=== PATIENT | female | born 1990 | race Caucasian/White ===

== ENCOUNTER 2018-07-27 10:35 | Emergency (ER) | END 2018-07-27 13:38 | disposition home or self-care (01) ==

== ENCOUNTER 2018-08-28 15:27 | Inpatient (IN) | END 2018-08-31 22:10 | disposition home or self-care (01) | DRG 832 ==

== ENCOUNTER 2018-09-20 14:21 | Inpatient (IN) | END 2018-09-22 21:50 | disposition home or self-care (01) | DRG 832 ==

== ENCOUNTER 2018-10-01 17:28 | Inpatient (IN) | payer MEDICAID, OTHER ==
[~2018-10-01] VITALS: Ht 152.4 cm; Wt 66.4 kg
[~2018-10-01 17:28] MED LIST: ASCO250T96 PO; CHOL400C PO; PREN-99 PO
[2018-10-01 17:42] VITALS: Ht 152.4 cm; Wt 66.4 kg
[2018-10-01 17:43] VITALS: BP 115/77; PULSE 110; RESP 20
[2018-10-01] MEDS ORDERED: NIFEdipine 10 MG CAP PO ONE (20:00)
[2018-10-01] MEDS: LACTATED RINGER'S 1,000 ML IV SCH ×2 (20:17→23:12)
[2018-10-01] MEDS: DOCUSATE SODIUM 100 MG CAP PO SCH (21:00)
--- NOTE | 2018-10-01 23:17 | HP ---
Date/Time of Note Date/Time of Note DATE: 10/01/18 TIME: 23:04 OB - History Hx of Present Free Text/Dictation 27 y.o. A2 with an IUP at 25w 6d came in with lower abdominal pain for one hour prior to admission. Pt has a h/o a short cervix over the last 5-6 weeks and has been followed by perinatology as well for the same thing. Her cervix was 1.8 cm on 09/22. She had beta-methasone at that hospital visit as well. At that last visit she was given magnesium for contractions but did not tolerate it so it was stopped. Estimated Due Date: Jan 08, 2019 : 5 Para: 2 Spontaneous : 2 Care: Good Care Ultrasounds: Normal mid trimester US Obstetrical Complications: Other (shortened cervix.) Medical Complications: None Other Concerns: POBHx: x 2 2011 and 2013 with an early miscarriage after each one.Pt states she had a problem with a short cervix with each . PSHx: Tonsillectomy age 13. LSC ovarian cystectomy 2014. NKDA. Past Family/Social History * Past Medical, Surgical, Family and Obstetric Histories reviewed with the patient. Blood Type: Unknown Rubella: unknown RPR/VDRL: Unknown GBS Status: Unknown HBsAG: Unknown OB Admission Exam Vital Signs Vital Signs Vital Signs Date Temp Pulse Resp B/P (MAP) Pulse Ox O2 O2 Flow FiO2 Time Delivery Rate 10/01/18 97.5 110 20 115/77 Room Air 17:43 (90) Physical Exam HEENT: WNL Heart: Rhythm Normal Lungs: Clear Abdomen: WNL Extremities: Normal Membranes: Intact Heart Rate: 140's Accelerations: Accelerations Present Decelerations: No Decelerations Varibility: Moderate Contractions on Admission: 6-10 Minutes Apart Intensity: Mild Last 72 hours Lab Results CBC & BMP 10/01/18 20:15 OB Assessment/Plan Reason for admission: labor Other Assessment: With a short cervix of 1.6 with funneling. Other plan: IV hydration. P.O. Procardia. Bedrest. Now that pt is in viability range she says she has not talked to neonatology, so will order a consult for her. Pt has 2 young children at home and no obvious caregivers to help out as the ones that do help her also work. Urine cx. REICHE,DANIELLA J MD Oct 01, 2018 23:17
[2018-10-02] MEDS: NIFEdipine 10 MG CAP PO SCH ×2 (06:50→13:56)
[2018-10-02] MEDS: LACTATED RINGER'S 1,000 ML IV SCH ×3 (07:01→22:47)
[2018-10-02] MEDS: PRENATAL VITAMIN PO SCH (09:15)
[2018-10-02] MEDS: DOCUSATE SODIUM 100 MG CAP PO SCH ×2 (09:15→20:52)
[2018-10-02] MEDS: FERROUS SULFATE (EC) 325 MG TAB PO SCH ×2 (09:15→20:53)
[2018-10-02] MEDS: NIFEdipine (XL) 30 MG TAB PO SCH (16:37)
[2018-10-03] MEDS: LACTATED RINGER'S 1,000 ML IV SCH ×2 (06:31→16:00)
[2018-10-03] MEDS: PRENATAL VITAMIN PO SCH (10:02)
[2018-10-03] MEDS: DOCUSATE SODIUM 100 MG CAP PO SCH ×2 (10:02→21:10)
[2018-10-03] MEDS: NIFEdipine (XL) 30 MG TAB PO SCH (10:02)
[2018-10-03] MEDS: FERROUS SULFATE (EC) 325 MG TAB PO SCH ×2 (10:02→21:10)
[2018-10-03] MEDS ORDERED: INDOMETHACIN 50 MG PO ONE (11:30)
--- NOTE | 2018-10-03 14:03 | PN ---
Date/Time of Note Date/Time of Note DATE: 10/03/18 TIME: 13:39 OB Subjective Subjective Subjective Date of admission: 10/01/18 Patient seen and examined. She states good movement. She denies nausea, vomiting, shortness of breath, chest pain, abdominal pain, headache, visual changes, vaginal bleeding or LOF. OB Objective Objective Objective Vital Signs Date Temp Pulse Resp B/P (MAP) Pulse Ox O2 O2 Flow FiO2 Time Delivery Rate 10/01/18 97.5 110 20 115/77 Room Air 17:43 (90) General: Patient appears well, alert and oriented, NAD, appropriate mood and affect ABD: gravid, soft, non-tender. Back: No CVA tenderness (B/L) LE: Mild edema. No clubbing, cyanosis, edema, thigh or calf tenderness bilaterally FHT: 135 bpm, moderate variability with acceleration, no deceleration-category I Contractions: Uterine irritability OB Assessment/Plan Other plan: 34-year-old 022 with single intrauterine at 26 weeks and 1 day with a MICHELE of 01/09/2018 admitted for short cervix and cervical funneling. She was admitted previously for a short cervix, received betamethasone x2 and magnesium sulfate only for 6 over as not able to tolerate magnesium sulfate. FHR: Reassuring. No sign of metabolic acidosis- Category I. She has uterine irritability. She is currently on Procardia. Patient discussed with Dr. Gil who recommend Indocin 50 mg p.o. x1 and then 25 mg every 8 hours for 48 hours. Observe patient closely. FILEMON LANDEROS Oct 03, 2018 14:03
[2018-10-03] MEDS: INDOMETHACIN 25 MG PO SCH (18:03)
[2018-10-04] MEDS: LACTATED RINGER'S 1,000 ML IV SCH ×3 (00:12→16:08)
[2018-10-04] MEDS: INDOMETHACIN 25 MG PO SCH ×5 (00:12→23:48)
[2018-10-04] MEDS: DOCUSATE SODIUM 100 MG CAP PO SCH ×2 (09:04→21:29)
[2018-10-04] MEDS: FERROUS SULFATE (EC) 325 MG TAB PO SCH ×2 (09:05→21:29)
[2018-10-04] MEDS: PRENATAL VITAMIN PO SCH (09:05)
[2018-10-04] MEDS: NIFEdipine (XL) 30 MG TAB PO SCH (09:07)
--- NOTE | 2018-10-04 10:52 | PN ---
Date/Time of Note Date/Time of Note DATE: 10/04/18 TIME: 10:50 OB Subjective Subjective Subjective Denies any complaint. Denies any vaginal bleeding, leaking of fluid decreased movements contractions. Comfortable in bed. OB Objective Objective Objective Appearance: Alert and oriented x4 does not appear to be in any acute distress Abdomen: Soft, gravid, fundal height consistent with gestational age NST: Category 1 and no contraction seen on the monitor Latest cervical length 1.6 OB Assessment/Plan Other Assessment: IUP at 26 weeks and 2 days Admitted for short cervix History of labor Status post steroid about 2 weeks ago when she was admitted Was on magnesium, for tocolysis however could not tolerate due to side effects Currently stable on Nifedipine oral 30 mg extended release Asymptomatic Status post perinatologist consultation. Recommended to be on Indocin for 48 hours as well Continue nifedipine and Indocin per perinatologist stop Indocin after 48 hours per perinatologist Expectant management CRISTELA BRUNSON MD Oct 04, 2018 10:52
[2018-10-05] MEDS: LACTATED RINGER'S 1,000 ML IV SCH ×3 (00:47→16:18)
[2018-10-05] MEDS: INDOMETHACIN 25 MG PO SCH ×3 (05:18→18:35)
[2018-10-05] MEDS: NIFEdipine (XL) 30 MG TAB PO SCH (08:40)
[2018-10-05] MEDS: FERROUS SULFATE (EC) 325 MG TAB PO SCH ×2 (08:40→21:12)
[2018-10-05] MEDS: PRENATAL VITAMIN PO SCH (08:40)
[2018-10-05] MEDS: DOCUSATE SODIUM 100 MG CAP PO SCH ×2 (08:40→21:12)
--- NOTE | 2018-10-06 05:52 | PN ---
Date/Time of Note Date/Time of Note DATE: 10/06/18 TIME: 05:40 OB Subjective Subjective Subjective Date of admission: 10/01/18 Hospital day # 5 Date of visit: 10/05/2018 (late entry note) Patient seen and examined. She states good movement. She denies nausea, vomiting, shortness of breath, chest pain, abdominal pain, headache, visual changes, vaginal bleeding or LOF. OB Objective Objective Objective General: Patient appears well, alert and oriented, NAD, appropriate mood and affect ABD: gravid, soft, non-tender. Back: No CVA tenderness (B/L) LE: Mild edema. No clubbing, cyanosis, edema, thigh or calf tenderness bilaterally FHT: 140 bpm, moderate variability with acceleration, no deceleration-category I Contractions: None OB Assessment/Plan Other plan: 34-year-old with single intrauterine at 26 weeks and 3 days admitted for short cervix and cervical funneling. - AF, VSS - FHR: Reassuring. No sign of metabolic acidosis- Category I - Continue vitamin and ferrous sulfate daily - Currently she has no uterine contractions - She has received betamethasone for lung maturity in last admission - She received magnesium sulfate for 6 hrs in prior admission, discontinued due to side effect - She is currently on Procardia 30 mg XL daily, is status post receiving Indocin for 48 hours - She was on [place] IM injection weekly prior to admission, cont meds - NICU and perinatology consult appreciated please see the note for detail FILEMON LANDEROS Oct 06, 2018 05:52
--- NOTE | 2018-10-06 05:53 | PN ---
Date/Time of Note Date/Time of Note DATE: 10/06/18 TIME: 05:52 OB Subjective Subjective Subjective Date of admission: 10/01/18 Hospital day # 6 Date of visit: 10/06/2018 Patient seen and examined. She states good movement. She denies nausea, vomiting, shortness of breath, chest pain, abdominal pain, headache, visual changes, vaginal bleeding or LOF. OB Objective Objective Objective General: Patient appears well, alert and oriented, NAD, appropriate mood and affect ABD: gravid, soft, non-tender. Back: No CVA tenderness (B/L) LE: Mild edema. No clubbing, cyanosis, edema, thigh or calf tenderness bilaterally FHT:130 bpm, moderate variability with acceleration, no deceleration-category I Contractions: None OB Assessment/Plan Other plan: 34-year-old with single intrauterine at 26 weeks and 4 days with short cervix and cervical funneling. - AF, VSS - FHR: Reassuring. No sign of metabolic acidosis- Category I - Continue vitamin and ferrous sulfate daily - Currently she has no uterine contractions - She has received betamethasone for lung maturity in last admission - She received magnesium sulfate for 6 hrs in prior admission, discontinued due to side effect - She is currently on Procardia 30 mg XL daily, S/p Indocin for 48 hours - She was on [place] IM injection weekly prior to admission, cont meds - NICU and perinatology consult appreciated please see the note for detail FILEMON LANDEROS Oct 06, 2018 05:53
[2018-10-06] MEDS: FERROUS SULFATE (EC) 325 MG TAB PO SCH ×2 (10:25→21:11)
[2018-10-06] MEDS: NIFEdipine (XL) 30 MG TAB PO SCH (10:25)
[2018-10-06] MEDS: PRENATAL VITAMIN PO SCH (10:25)
[2018-10-07] MEDS: NIFEdipine (XL) 30 MG TAB PO SCH (08:18)
[2018-10-07] MEDS: FERROUS SULFATE (EC) 325 MG TAB PO SCH ×2 (08:18→21:01)
[2018-10-07] MEDS: PRENATAL VITAMIN PO SCH (08:18)
--- NOTE | 2018-10-07 18:24 | QN ---
Documentation Comment 34-year-old with single intrauterine at 26 weeks and 5 days with short cervix and cervical funneling. Has no uterine contraction or any other complaint - AF, VSS - FHR: Reassuring. No sign of metabolic acidosis- Category I - Continue vitamin and ferrous sulfate daily - Currently she has no uterine contractions - She has received betamethasone for lung maturity in last admission - She received magnesium sulfate for 6 hrs in prior admission, discontinued due to side effect - She is currently on Procardia 30 mg XL daily, S/p Indocin for 48 hours - She was on [place] IM injection weekly prior to admission, cont meds - NICU and perinatology consult appreciated please see the note for detail FILEMON LANDEROS Oct 07, 2018 18:24
[2018-10-07] MEDS: ACETAMINOPHEN 325 MG TAB PO PRN (21:25)
[2018-10-08] MEDS: PRENATAL VITAMIN PO SCH (08:48)
[2018-10-08] MEDS: NIFEdipine (XL) 30 MG TAB PO SCH (08:48)
[2018-10-08] MEDS: FERROUS SULFATE (EC) 325 MG TAB PO SCH ×2 (08:48→21:47)
[2018-10-08] MEDS ORDERED: MEDROXYPROGESTERONE 150 MG INJ SYG IM SCH (10:00)
[2018-10-08] MEDS: HYDROXYPROGESTERONE CAPROATE SC SCH (17:46)
[2018-10-08] MEDS: DOCUSATE SODIUM 100 MG CAP PO PRN (21:47)
[2018-10-09] MEDS: FERROUS SULFATE (EC) 325 MG TAB PO SCH ×2 (08:51→20:59)
[2018-10-09] MEDS: NIFEdipine (XL) 30 MG TAB PO SCH (08:52)
[2018-10-09] MEDS: DOCUSATE SODIUM 100 MG CAP PO PRN (08:52)
[2018-10-09] MEDS: PRENATAL VITAMIN PO SCH (08:52)
--- NOTE | 2018-10-09 09:15 | PN ---
Date/Time of Note Date/Time of Note DATE: 10/09/18 TIME: 09:05 OB Subjective Subjective Subjective Date of admission: 10/01/18 Hospital day # 8 Date of visit: 10/06/2018 Patient seen and examined. She states good movement. She denies nausea, vomiting, shortness of breath, chest pain, abdominal pain, headache, visual changes, vaginal bleeding or LOF. OB Objective Objective Objective Vital sign: blood pressure 116/70, pulse rate 78/minutes, respiratory rate 16/minutes, temperature 98.3 General: Patient appears well, alert and oriented, NAD, appropriate mood and affect ABD: gravid, soft, non-tender. Back: No CVA tenderness (B/L) LE: Mild edema. No clubbing, cyanosis, edema, thigh or calf tenderness bilaterally FHT:145 bpm, moderate variability with acceleration, no deceleration-category I Contractions: None OB Assessment/Plan Other plan: 34-year-old with single intrauterine at 27 weeks with short cervix and cervical funneling. - AF, VSS - FHR: Reassuring. No sign of metabolic acidosis- Category I - Continue vitamin and ferrous sulfate daily - Currently she has no uterine contractions - She is currently steroid benefited - She received magnesium sulfate for 6 hrs in prior admission, discontinued due to side effect - She is currently on Procardia 30 mg XL daily, S/p receiving Indocin for 48 hours in current admission - She was on [place] IM injection weekly prior to admission, cont meds - NICU and perinatology consult appreciated, please see the note for detail FILEMON LANDEROS Oct 09, 2018 09:15
[2018-10-10] MEDS: PRENATAL VITAMIN PO SCH (08:47)
[2018-10-10] MEDS: FERROUS SULFATE (EC) 325 MG TAB PO SCH ×2 (08:47→21:19)
[2018-10-10] MEDS: NIFEdipine (XL) 30 MG TAB PO SCH (08:47)
--- NOTE | 2018-10-11 01:08 | QN ---
Documentation Comment 34-year-old with single intrauterine at 27 weeks 1 day with short cervix and cervical funneling. - AF, VSS - FHR: Reassuring. No sign of metabolic acidosis- Category I - Continue vitamin and ferrous sulfate daily - Currently she has no uterine contractions - She is currently steroid benefited - She received magnesium sulfate for 6 hrs in prior admission, discontinued due to side effect - She is on Procardia 30 mg XL daily, S/p receiving Indocin for 48 hours in current admission - She was on [place] IM injection weekly prior to admission, cont FILEMON Bhatt Oct 11, 2018 01:08
[2018-10-11] MEDS: PRENATAL VITAMIN PO SCH (08:53)
[2018-10-11] MEDS: FERROUS SULFATE (EC) 325 MG TAB PO SCH ×2 (08:53→20:53)
[2018-10-11] MEDS: NIFEdipine (XL) 30 MG TAB PO SCH (08:54)
--- NOTE | 2018-10-11 12:18 | PN ---
Date/Time of Note Date/Time of Note DATE: 10/11/18 TIME: 12:15 OB Subjective Subjective Subjective Denies any complaint. Denies leaking of fluid, vaginal bleeding pelvic pressure decreased movements or urinary symptoms. Comfortable. OB Objective Objective Objective Appearance: Alert and oriented x4 does not appear to be in any acute distress Abdomen: Soft, size consistent with dates. No tenderness NST: Appropriate for gestational age and category 1 No contraction noted on the monitor OB Assessment/Plan Other Assessment: Hospital day #11 Admitted for short cervix and cervical funneling due to labor Status post tovolysis with magnesium and Steriods, completed on 10/22. s/p perinataologty and neonatology consultaion Currently taking Procardia 30 mg extended release daily as well as receiving [place] weekly injection Doing well asymptomatic Stable Continue expectant management in house. NST every shift Has not completed GDM screening test. Order for 1 hour Glucola test placed verbal to RN Tdap/flu shot for immunization CRISTELA BRUNSON MD Oct 11, 2018 12:18
[2018-10-11] MEDS ORDERED: DIPHTH/TET/ACEL PERTUSS (ADULT) 0.5 ML VIAL IM* ONE ×2 (13:30→22:30)
[2018-10-12] MEDS: PRENATAL VITAMIN PO SCH (09:00)
[2018-10-12] MEDS: FERROUS SULFATE (EC) 325 MG TAB PO SCH ×2 (09:00→20:39)
[2018-10-12] MEDS: NIFEdipine (XL) 30 MG TAB PO SCH (09:01)
--- NOTE | 2018-10-12 23:45 | PN ---
Date/Time of Note Date/Time of Note DATE: 10/12/18 TIME: 23:40 OB Subjective Subjective Subjective Date of admission: 10/01/18 Hospital day # 12 Date of visit: 10/12/2018 Patient seen and examined. She states good movement. She denies nausea, vomiting, shortness of breath, chest pain, abdominal pain, headache, visual changes, vaginal bleeding or LOF. OB Objective Objective Objective General: Patient appears well, alert and oriented, NAD, appropriate mood and affect ABD: gravid, soft, non-tender. Back: No CVA tenderness (B/L) LE: Mild edema. No clubbing, cyanosis, edema, thigh or calf tenderness bilaterally FHT:145 bpm, moderate variability with acceleration, no deceleration-category I Contractions: None OB Assessment/Plan Other plan: 34-year-old with single intrauterine at 27 3/7 weeks with short cervix and cervical funneling. - AF, VSS - FHR: Reassuring. No sign of metabolic acidosis- Category I - She has no uterine contractions - Continue vitamin and ferrous sulfate daily - She is currently steroid benefited - She received magnesium sulfate for 6 hrs in prior admission, discontinued due to side effect - She is currently on Procardia 30 mg XL daily, S/p receiving Indocin for 48 hours in current admission - She is receiving [place] IM injection weekly - NICU and perinatology consult appreciated, please see the note for detail FILEMON LANDEROS Oct 12, 2018 23:45
[2018-10-13] MEDS: PRENATAL VITAMIN PO SCH (09:20)
[2018-10-13] MEDS: FERROUS SULFATE (EC) 325 MG TAB PO SCH ×2 (09:20→22:20)
[2018-10-13] MEDS: NIFEdipine (XL) 30 MG TAB PO SCH (09:21)
[2018-10-13] MEDS: ACETAMINOPHEN 325 MG TAB PO PRN (12:06)
--- NOTE | 2018-10-13 12:23 | PN ---
Date/Time of Note Date/Time of Note DATE: 10/13/18 TIME: 12:10 OB Subjective Subjective Subjective Date of admission: 10/01/18 Hospital day # 13 Date of visit: 10/13/2018 Patient seen and examined. She states good movement. She denies nausea, vomiting, shortness of breath, chest pain, abdominal pain, headache, visual changes, vaginal bleeding or LOF. OB Objective Objective Objective General: Patient appears well, alert and oriented, NAD, appropriate mood and affect ABD: gravid, soft, non-tender. Back: No CVA tenderness (B/L) LE: Mild edema. No clubbing, cyanosis, edema, thigh or calf tenderness bilaterally FHT:130 bpm, moderate variability with acceleration, no deceleration-category I Contractions: None OB Assessment/Plan Other plan: 34-year-old with single intrauterine at 27 4/7 weeks with short cervix and cervical funneling. - AF, VSS - FHR: Reassuring. No sign of metabolic acidosis- Category I - She has no uterine contractions - Continue vitamin and ferrous sulfate daily - She is currently steroid benefited - She received magnesium sulfate for 6 hrs in prior admission, discontinued due to side effect - She is currently on Procardia 30 mg XL daily, S/p receiving Indocin for 48 hours in current admission - She was on [place] IM injection weekly, pharmacy does not have [place]. Prometrium 200 mg suppository nightly ordered - 1 hour glucose test performed as outpatient which is normal. - She has received Tdap and flu vaccine - NICU and perinatology consult appreciated, please see the note for detail FILEMON LANDEROS Oct 13, 2018 12:22
[2018-10-13] MEDS ORDERED: PROGESTERONE 100 MG CAP PO SCH (21:00)
[2018-10-13] MEDS: PROGESTERONE 100 MG CAP PO SCH (22:19)
[2018-10-13] MEDS: DOCUSATE SODIUM 100 MG CAP PO PRN (22:20)
[2018-10-14] MEDS: DIPHENHYDRAMINE 25 MG CAP PO PRN (01:02)
[2018-10-14] MEDS: NIFEdipine (XL) 30 MG TAB PO SCH (08:44)
[2018-10-14] MEDS: PRENATAL VITAMIN PO SCH (08:44)
[2018-10-14] MEDS: FERROUS SULFATE (EC) 325 MG TAB PO SCH ×2 (08:44→20:56)
[2018-10-14] MEDS: PROGESTERONE 100 MG CAP PO SCH (22:19)
[2018-10-15] MEDS: DIPHENHYDRAMINE 25 MG CAP PO PRN (00:05)
[2018-10-15] MEDS: FERROUS SULFATE (EC) 325 MG TAB PO SCH ×2 (08:24→21:11)
[2018-10-15] MEDS: PRENATAL VITAMIN PO SCH (08:24)
[2018-10-15] MEDS: NIFEdipine (XL) 30 MG TAB PO SCH (08:24)
[2018-10-15] MEDS: ACETAMINOPHEN 325 MG TAB PO PRN ×2 (08:26→21:15)
--- NOTE | 2018-10-15 13:35 | QN ---
Documentation Comment 27+wks GA with short cervix no complaints NST reassuring [place] No CTXs Pelvic Deferred --->Management as Per and Perinatalogist ESTHER SAHNI M.D. Oct 15, 2018 13:35
[2018-10-15] MEDS: HYDROXYPROGESTERONE CAPROATE SC SCH (14:13)
[2018-10-15] MEDS: PROGESTERONE 100 MG CAP PO SCH (21:12)
[2018-10-16] MEDS: PRENATAL VITAMIN PO SCH (08:44)
[2018-10-16] MEDS: FERROUS SULFATE (EC) 325 MG TAB PO SCH (08:44)
[2018-10-16] MEDS: NIFEdipine (XL) 30 MG TAB PO SCH (08:45)
[2018-10-16] MEDS: DOCUSATE SODIUM 100 MG CAP PO PRN (08:48)
--- NOTE | 2018-10-16 13:35 | PN ---
Date/Time of Note Date/Time of Note DATE: 10/16/18 TIME: 13:34 OB Subjective Subjective Subjective Asked to revisit this patient regarding ongoing care. Review of the record r eveals that the cervix has decreased from 1.9 cm on admission to 0.7 cm today. Under these circumstances, I would be reluctant to discharge the patient until 34 weeks GA FERNANDO WATKINS MD Oct 16, 2018 13:35
--- NOTE | 2018-10-17 20:07 | PN ---
Date/Time of Note Date/Time of Note DATE: 10/17/18 TIME: 20:05 OB Subjective Subjective Subjective Entry note. Patient seen on 10/16/2018 Date of admission: 10/01/18 Patient seen and examined. She states good movement. She denies nausea, vomiting, shortness of breath, chest pain, abdominal pain, headache, visual changes, vaginal bleeding or LOF. OB Objective Objective Objective General: Patient appears well, alert and oriented, NAD, appropriate mood and affect ABD: gravid, soft, non-tender. Back: No CVA tenderness (B/L) LE: Mild edema. No clubbing, cyanosis, edema, thigh or calf tenderness bilaterally FHT:140 bpm, moderate variability with acceleration, no deceleration-category I Contractions: None OB Assessment/Plan Other plan: 34-year-old with single intrauterine at 28 weeks with short cervix and cervical funneling. - AF, VSS - FHR: Reassuring. No sign of metabolic acidosis- Category I - She has no uterine contractions - Continue vitamin and ferrous sulfate daily - She is currently steroid benefited - She received magnesium sulfate for 6 hrs in prior admission, discontinued due to side effect - She is currently on Procardia 30 mg XL daily, S/p receiving Indocin for 48 hours in current admission - She was on [place] IM injection weekly, pharmacy does not have [place]. Prometrium 200 mg suppository nightly ordered - 1 hour glucose test performed as outpatient which is normal. - She has received Tdap and flu vaccine - NICU and perinatology consult appreciated, please see the note for detail - Repeat ultrasound for cervical length, follow-up after performing ultrasound FILEMON LANDEROS Oct 17, 2018 20:07
--- NOTE | 2018-10-17 20:13 | DS ---
Date/Time of Note Date/Time of Note DATE: 10/17/18 TIME: 20:08 Obstetrical Discharge Record Final Diagnosis Final Diagnosis: not delivered Other Final Diagnosis 34-year-old with single intrauterine at 28 weeks with short cervix and cervical funneling. FHR: Reassuring. No sign of metabolic acidosis- Category I. She has no uterine contractions. She received betamethasone x2 and currently is steroid benefited. She received magnesium sulfate for 6 hrs in prior admission, discontinued due to side effect. She is currently on Procardia 30 mg XL daily, S/p receiving Indocin for 48 hours in current admission. She was on [place] IM injection weekly, pharmacy does not have [place]. Currently is on Prometrium 200 mg suppository daily. She has received Tdap and flu vaccine. Repeat ultrasound revealed a cervical length of 0.7 with funneling, previous ultrasound with cervical length of 1.9 cm. Results of ultrasound discussed in detail with patient she expressed understanding all of her questions answered. Strongly recommend continue inpatient management. She decided to sign AMA and leave the hospital. Risk including but not limited to bleeding, delivery of the fetus without access to farm facility manager, cord prolapse, discussed in detail with patient. She expressed an understanding. All of her questions answered. She signed AMA and left the hospital. Condition on Discharge Physical Assessment Voiding: Yes Bowel Movement: Yes Breast: Soft, non-tender Calf Tenderness: No Patient Condition: Stable FILEMON LANDEROS Oct 17, 2018 20:13
== END 2018-10-16 17:30 | disposition left against medical advice (07) | DRG 833 ==
LOC: OBT 17:28 → L-D 17:31 → OBT 19:55 → L-D 19:55 → PP1 10-03 14:20
PROVIDERS: ADMIT Obstetrics & Gynecology; ATTEND Obstetrics & Gynecology
DX: O26.872 Cervical shortening, second trimester (principal); Z3A.25 25 weeks gestation of pregnancy
CPT/HCPCS: 76815; 76817; 76818; 81001; 85025; 87086; 90686; 90715; G0463; J1050; J7120

== ENCOUNTER 2018-11-30 04:10 | Outpatient (CLI) | payer OTHER ==
[~2018-11-30] VITALS: Ht 152.4 cm; Wt 68.0 kg
[2018-11-30 04:54] VITALS: BP 119/76; PULSE 119; RESP 17; Ht 152.4 cm; Wt 68.0 kg
[2018-11-30] MEDS ORDERED: NIFE30TA2 PO (04:57)
[2018-11-30] MEDS ORDERED: TERBUTALINE 1 MG/ML INJ SC STA (05:28)
[2018-11-30] MEDS ORDERED: LACTATED RINGER'S 1,000 ML IV ONE (05:30)
[2018-11-30] MEDS ORDERED: LACTATED RINGER'S 1,000 ML IV SCH (06:30)
[2018-11-30] MEDS ORDERED: CEFTRIAXONE 1 GM/50 ML (PMX) 50 ML IVPB ONE (06:30)
[2018-11-30] MEDS ORDERED: TERBUTALINE 1 MG/ML INJ SC ONE (07:00)
--- NOTE | 2018-11-30 10:36 | PN ---
Triage Information Date/Time 11/30/1810/20/1025 Reason for visit: Uterine contractions Weeks of Gestation 34w3d /Para Diabetes: none Hypertention: none Additional information short cervix 1.9 which is stable 10/01/18 1.6 10/20/18 1.3 today 1.9 S/P x2 times bmz has been on weekly progesterone and daily procardia 30mg Objective Vital Signs Date Temp Pulse Resp B/P (MAP) Pulse Ox O2 O2 Flow FiO2 Time Delivery Rate 11/30/18 98.3 119 17 119/76 Room Air 04:54 (90) Heart Rate: 120's Heart Rate Comments CAT I tracing Contractions: < 5 Minutes Apart Results/Medications Results 24 hrs Laboratory Tests Test 11/30/18 04:35 Urine Color YELLOW Urine Clarity SLIGHTLY CLOUDY A Urine pH 5.0 Urine Specific [place] 1.016 Urine Ketones NEGATIVE Urine Nitrite NEGATIVE Urine Bilirubin NEGATIVE Urine Urobilinogen NEGATIVE Urine Leukocyte Esterase 2+ H Urine Microscopic RBC 2 Urine Microscopic WBC 18 H Urine Squamous Epithelial Cells FEW Urine Bacteria FEW A Urine Mucus FEW A Urine Hemoglobin NEGATIVE Urine Glucose NEGATIVE Urine Total Protein NEGATIVE Medications terbutaline x2 with IV hydration rocephine 1gm Imaging Results BPP 8/8 [place] 12.9 Disposition: Discharge Assessment/Plan A IUp 34w3d short cervix PTL resolved UTI P continue current care increase fluid intake Rxcephalexin [id number] #[id number] STERLING ALFREDO MD Nov 30, 2018 10:36
--- NOTE | 2018-11-30 15:28 | TRIAGE ---
OB Triage Datetime Report Generated by CPN: 11/30/2018 15:27 Datetime: 11/30/2018 08:54 Labor Evaluation Frequency: 0 Monitor Mode: External Pattern: Normal: <= 5 Contractions in 10 Minutes Resting Tone [place]: Relaxed Heart Rate FHR Baseline Rate: 145 Monitor Mode: External US Variability: Moderate 6-25 bpm Accelerations: 10X10 Decelerations: None Category: Category I Pain Assessment Pain Scale: 0 Pain Presence: None/Denies Pain Type: N/A Pain Goal: 3 Pain Relief Measures: Comfort Measures Datetime: 11/30/2018 08:04 Labor Evaluation Frequency: 0 Monitor Mode: External Pattern: Normal: <= 5 Contractions in 10 Minutes Resting Tone [place]: Relaxed Heart Rate FHR Baseline Rate: 145 Monitor Mode: External US Accelerations: 10X10 Decelerations: None Category: Category I Pain Assessment Pain Scale: 2 Pain Presence: Constant Pain Type: Cramping; Pressure Pain Location: Perineum Pain Goal: 3 Pain Relief Measures: Comfort Measures Datetime: 11/30/2018 07:41 Monitor Mode: External Pattern: Normal: <= 5 Contractions in 10 Minutes Resting Tone [place]: Relaxed Monitor Mode: External US Pain Assessment Pain Scale: 0 Pain Presence: None/Denies Pain Type: N/A Pain Goal: 3 Datetime: 11/30/2018 07:00 Stage of : OB Triage Labor Evaluation Frequency: X5 Monitor Mode: External Duration (sec)2399: 50-70 Quality: Mild Pattern: Normal: <= 5 Contractions in 10 Minutes Resting Tone [place]: Relaxed Heart Rate FHR Baseline Rate: 135 Monitor Mode: External US Variability: Moderate 6-25 bpm Accelerations: 15X15 Decelerations: None Category: Category I Datetime: 11/30/2018 06:00 Stage of : OB Triage Labor Evaluation Frequency: 2-4 Monitor Mode: External Duration (sec)2399: 60-70 Quality: Moderate Pattern: Normal: <= 5 Contractions in 10 Minutes Resting Tone [place]: Relaxed Heart Rate FHR Baseline Rate: 135 Monitor Mode: External US Variability: Moderate 6-25 bpm Accelerations: 15X15 Decelerations: None Category: Category I Datetime: 11/30/2018 05:00 Stage of : OB Triage Labor Evaluation Frequency: 2-6 Monitor Mode: External Duration (sec)2399: 50-70 Quality: Moderate Pattern: Normal: <= 5 Contractions in 10 Minutes Resting Tone [place]: Relaxed Heart Rate FHR Baseline Rate: 125 Monitor Mode: External US Variability: Moderate 6-25 bpm Accelerations: 15X15 Decelerations: None Category: Category I Datetime: 11/30/2018 04:59 Time of Arrival: 11/30/2018 04:10 EGA: 34.3 Arrived By: Wheelchair Arrived From: Home Chief Complaint: CONTRACTIONS Movement: Present Contractions: Regular Time Contractions Began: 11/30/2018 02:00 Contractions: 3-6 Rupture of Membranes: Denies Vaginal Bleeding: None Vaginal Discharge: Denies Recent Sexual Intercouse: Denies Abdominal Trauma: Not Applicable Patient Complaints: Contractions Additional Patient Complaints: SHORT CERVIX, PTL Time Provider Notified: 11/30/2018 05:27 Provider Notified: DR. ALFREDO Initial Plan: EFM, CALL OB Datetime: 11/30/2018 04:25 Stage of : OB Triage Maternal Assessment Level of Consciousness: Fully Conscious DTR's/Clonus: DTRs 2+; No Clonus Headache: Denies Blurred Vision: No Respiratory Effort: Unlabored; Regular Rhythm; Equal Expansion Breath Sounds, Left: Clear and Equal Breath Sounds, Right: Clear and Equal Nausea/Vomiting: Denies RUQ Epigastric Pain: Denies Lower Extremities Edema: None Degree: None Upper Extremities Edema: None Degree: None Facial Edema: None Temperature Route: Oral Fall Risk Assessment History of Falling: (0) No Secondary Diagnosis: (0) No Ambulatory Aid: (0) Bedrest/Nurse Assist IV Therapy: (0) No Gait: (0) Normal/Bedrest/Immobile Mental Status: (0) Oriented to Own Ability Fall Score: 0 Fall Risk Score Definition: No Risk: No action required Pain Assessment Pain Scale: 5 Pain Presence: Intermittent Pain Type: Contraction Pain Location: Abdomen; Back Pain Goal: 0 Pain Relief Measures: Comfort Measures Datetime: 11/30/2018 04:23 Monitor Mode: External US Comments: APPLIED Datetime: 10/31/2018 13:45 Stage of : Antepartum Datetime: 10/31/2018 13:30 Labor Evaluation Frequency: 0 Monitor Mode: External Pattern: Normal: <= 5 Contractions in 10 Minutes Resting Tone [place]: Relaxed Heart Rate FHR Baseline Rate: 120 Monitor Mode: External US FHR Baseline Changes: No Baseline Change Variability: Moderate 6-25 bpm Accelerations: 10X10 Decelerations: None Category: Category I Datetime: 10/31/2018 12:14 Labor Evaluation Frequency: 0 Monitor Mode: External Pattern: Normal: <= 5 Contractions in 10 Minutes Resting Tone [place]: Relaxed Heart Rate FHR Baseline Rate: 130 Monitor Mode: External US FHR Baseline Changes: No Baseline Change Variability: Moderate 6-25 bpm Accelerations: 10X10 Decelerations: None Category: Category I Datetime: 10/31/2018 11:56 Assessment Type: Ongoing Assessment Maternal Assessment Level of Consciousness: Fully Conscious DTR's/Clonus: DTRs 2+; No Clonus Headache: Denies Respiratory Effort: Unlabored; Regular Rhythm Breath Sounds, Left: Clear and Equal Breath Sounds, Right: Clear and Equal Datetime: 10/31/2018 11:46 Temperature Route: Oral Pain Assessment Pain Scale: 0 Pain Presence: None/Denies Pain Goal: 0 Datetime: 10/31/2018 11:30 Labor Evaluation Frequency: 0 Monitor Mode: External Pattern: Normal: <= 5 Contractions in 10 Minutes Resting Tone [place]: Relaxed Heart Rate FHR Baseline Rate: 130 Monitor Mode: External US FHR Baseline Changes: No Baseline Change Variability: Moderate 6-25 bpm Accelerations: 10X10 Decelerations: None Category: Category I Datetime: 10/31/2018 10:24 Labor Evaluation Frequency: 0 Monitor Mode: External Pattern: Normal: <= 5 Contractions in 10 Minutes Resting Tone [place]: Relaxed Heart Rate FHR Baseline Rate: 130 Monitor Mode: External US FHR Baseline Changes: No Baseline Change Variability: Moderate 6-25 bpm Accelerations: 10X10 Decelerations: None Category: Category I Datetime: 10/31/2018 10:19 Stage of : Antepartum Datetime: 10/31/2018 10:00 Assessment Type: Ongoing Assessment Maternal Assessment Level of Consciousness: Fully Conscious DTR's/Clonus: DTRs 2+ Headache: Denies Respiratory Effort: Unlabored; Regular Rhythm Breath Sounds, Left: Clear and Equal Breath Sounds, Right: Clear and Equal Datetime: 10/31/2018 09:19 Labor Evaluation Frequency: 0 Monitor Mode: External Pattern: Normal: <= 5 Contractions in 10 Minutes Resting Tone [place]: Relaxed Heart Rate FHR Baseline Rate: 120 Monitor Mode: External US FHR Baseline Changes: No Baseline Change Variability: Moderate 6-25 bpm Accelerations: 15X15 Decelerations: None Category: Category I Datetime: 10/31/2018 07:43 Labor Evaluation Frequency: X1 Monitor Mode: External Quality: Mild Pattern: Normal: <= 5 Contractions in 10 Minutes Resting Tone [place]: Relaxed Heart Rate FHR Baseline Rate: 130 FHR Baseline Changes: No Baseline Change Variability: Moderate 6-25 bpm Accelerations: 10X10 Decelerations: None Category: Category I Datetime: 10/31/2018 07:42 Stage of : Antepartum Temperature Route: Oral Pain Assessment Pain Scale: 0 Pain Presence: None/Denies Pain Goal: 0 Datetime: 10/31/2018 07:36 Assessment Type: Ongoing Assessment Maternal Assessment Level of Consciousness: Fully Conscious DTR's/Clonus: DTRs 2+; No Clonus Headache: Denies Blurred Vision: No Respiratory Effort: Unlabored; Regular Rhythm; Equal Expansion Breath Sounds, Left: Clear and Equal Breath Sounds, Right: Clear and Equal Nausea/Vomiting: Denies RUQ Epigastric Pain: Denies Lower Extremities Edema: None Degree: None Upper Extremities Edema: None Facial Edema: None Fall Risk Assessment History of Falling: (0) No Secondary Diagnosis: (0) No Ambulatory Aid: (0) Bedrest/Nurse Assist IV Therapy: (20) Yes Gait: (0) Normal/Bedrest/Immobile Mental Status: (0) Oriented to Own Ability Fall Score: 20 Fall Risk Score Definition: No Risk: No action required Datetime: 10/31/2018 06:22 Labor Evaluation Frequency: 0 Monitor Mode: External Duration (sec)2399: DENIES Resting Tone [place]: Relaxed Heart Rate FHR Baseline Rate: 125 Monitor Mode: External US Variability: Moderate 6-25 bpm Accelerations: 10X10 Decelerations: None Category: Category I Pain Presence: None/Denies Datetime: 10/31/2018 05:14 Stage of : Antepartum Assessment Type: Ongoing Assessment Maternal Assessment Level of Consciousness: Fully Conscious DTR's/Clonus: DTRs 2+; No Clonus Headache: Denies Blurred Vision: No Respiratory Effort: Unlabored; Regular Rhythm; Equal Expansion Breath Sounds, Left: Clear and Equal Breath Sounds, Right: Clear and Equal Nausea/Vomiting: Denies RUQ Epigastric Pain: Denies Lower Extremities Edema: None Degree: None Upper Extremities Edema: None Degree: None Facial Edema: None Temperature Route: Oral Fall Risk Assessment History of Falling: (0) No Secondary Diagnosis: (0) No Ambulatory Aid: (0) Bedrest/Nurse Assist IV Therapy: (0) No Gait: (0) Normal/Bedrest/Immobile Mental Status: (0) Oriented to Own Ability Fall Score: 0 Fall Risk Score Definition: No Risk: No action required Pain Presence: None/Denies Datetime: 10/31/2018 04:30 Stage of : Antepartum Maternal Assessment Level of Consciousness: Fully Conscious Headache: Denies RUQ Epigastric Pain: Denies Labor Evaluation Frequency: NONE Monitor Mode: External Heart Rate FHR Baseline Rate: 115 Monitor Mode: External US Variability: Moderate 6-25 bpm Accelerations: 10X10 Decelerations: None Category: Category I Pain Presence: None/Denies Vaginal Exam Membrane Status: Intact Datetime: 10/31/2018 04:00 Stage of : Antepartum Maternal Assessment Level of Consciousness: Fully Conscious Headache: Denies RUQ Epigastric Pain: Denies Labor Evaluation Frequency: NONE Monitor Mode: External Heart Rate FHR Baseline Rate: 115 Monitor Mode: External US Variability: Moderate 6-25 bpm Accelerations: 10X10 Decelerations: None Category: Category I Pain Presence: None/Denies Vaginal Exam Membrane Status: Intact Datetime: 10/31/2018 03:00 Stage of : Antepartum Maternal Assessment Level of Consciousness: Fully Conscious Headache: Denies RUQ Epigastric Pain: Denies Labor Evaluation Frequency: NONE Monitor Mode: External Heart Rate FHR Baseline Rate: 120 Monitor Mode: External US Variability: Moderate 6-25 bpm Accelerations: 10X10 Decelerations: None Category: Category I Pain Presence: None/Denies Vaginal Exam Membrane Status: Intact Datetime: 10/31/2018 02:00 Stage of : Antepartum Maternal Assessment Level of Consciousness: Fully Conscious Headache: Denies RUQ Epigastric Pain: Denies Labor Evaluation Frequency: NONE Monitor Mode: External Heart Rate FHR Baseline Rate: 130 Monitor Mode: External US Variability: Moderate 6-25 bpm Accelerations: 10X10 Decelerations: None Category: UNABLE ASSIGN CATEGORY DUE TO FHR MULTIPLE SKPING TRACING. Pain Presence: None/Denies Vaginal Exam Membrane Status: Intact Datetime: 10/31/2018 01:00 Stage of : Antepartum Maternal Assessment Level of Consciousness: Fully Conscious Headache: Denies RUQ Epigastric Pain: Denies Labor Evaluation Frequency: NONE Monitor Mode: External Heart Rate FHR Baseline Rate: 130 Monitor Mode: External US Variability: Moderate 6-25 bpm Accelerations: 10X10 Decelerations: None Pain Presence: None/Denies Vaginal Exam Membrane Status: Intact Datetime: 10/31/2018 00:00 Stage of : Antepartum Maternal Assessment Level of Consciousness: Fully Conscious Headache: Denies RUQ Epigastric Pain: Denies Labor Evaluation Frequency: NONE Monitor Mode: External Heart Rate FHR Baseline Rate: 130 Monitor Mode: External US Variability: Moderate 6-25 bpm Accelerations: 10X10 Decelerations: None Category: UNABLE ASSIGN CATEGORY DUE TO FHR MULTIPLE SKPING TRACING, EFM READJUSTED. Pain Presence: None/Denies Vaginal Exam Membrane Status: Intact Datetime: 10/30/2018 23:00 Stage of : Antepartum Maternal Assessment Level of Consciousness: Fully Conscious Headache: Denies RUQ Epigastric Pain: Denies Labor Evaluation Frequency: NONE Monitor Mode: External Heart Rate FHR Baseline Rate: 130 Monitor Mode: External US Variability: Moderate 6-25 bpm Accelerations: 10X10 Decelerations: None Pain Presence: None/Denies Vaginal Exam Membrane Status: Intact Datetime: 10/30/2018 22:00 Stage of : Antepartum Headache: Denies RUQ Epigastric Pain: Denies Labor Evaluation Frequency: NONE Monitor Mode: External Heart Rate FHR Baseline Rate: 130 Monitor Mode: External US Variability: Moderate 6-25 bpm Accelerations: 10X10 Decelerations: None Category: Category I Pain Presence: None/Denies Vaginal Exam Membrane Status: Intact Datetime: 10/30/2018 21:00 Stage of : Antepartum Headache: Denies RUQ Epigastric Pain: Denies Labor Evaluation Frequency: NONE Monitor Mode: External Heart Rate FHR Baseline Rate: 130 Monitor Mode: External US Variability: Moderate 6-25 bpm Accelerations: 10X10 Decelerations: None Category: Category I Pain Presence: None/Denies Vaginal Exam Membrane Status: Intact Datetime: 10/30/2018 20:19 Assessment Type: Ongoing Assessment Maternal Assessment Level of Consciousness: Fully Conscious DTR's/Clonus: DTRs 2+; No Clonus Headache: Denies Blurred Vision: No Respiratory Effort: Unlabored; Regular Rhythm; Equal Expansion Breath Sounds, Left: Clear and Equal Breath Sounds, Right: Clear and Equal Nausea/Vomiting: Denies RUQ Epigastric Pain: Denies Lower Extremities Edema: None Degree: None Upper Extremities Edema: None Degree: None Facial Edema: None Fall Risk Assessment History of Falling: (0) No Secondary Diagnosis: (0) No Ambulatory Aid: (0) Bedrest/Nurse Assist IV Therapy: (0) No Gait: (0) Normal/Bedrest/Immobile Mental Status: (0) Oriented to Own Ability Fall Score: 0 Fall Risk Score Definition: No Risk: No action required Datetime: 10/30/2018 20:10 Stage of : Antepartum Headache: Denies RUQ Epigastric Pain: Denies Labor Evaluation Frequency: NONE Monitor Mode: External Heart Rate FHR Baseline Rate: 130 Monitor Mode: External US Pain Presence: None/Denies Vaginal Exam Membrane Status: Intact Datetime: 10/30/2018 19:40 Stage of : Antepartum Headache: Denies RUQ Epigastric Pain: Denies Labor Evaluation Frequency: X1 Monitor Mode: External Duration (sec)2399: 50 Quality: Mild Pattern: Normal: <= 5 Contractions in 10 Minutes Resting Tone [place]: Relaxed Monitor Mode: External US Category: UNABLE ASSIGN CATEGORY DUE TO EFM LOSS OF CONTACT, EFM READJUSTED. Pain Presence: None/Denies Vaginal Exam Membrane Status: Intact Datetime: 10/30/2018 19:00 Assessment Type: Ongoing Assessment Datetime: 10/30/2018 18:30 Stage of : Antepartum Headache: Denies Blurred Vision: No RUQ Epigastric Pain: Denies Facial Edema: None Labor Evaluation Frequency: cramping Pattern: Normal: <= 5 Contractions in 10 Minutes Resting Tone [place]: Relaxed Heart Rate FHR Baseline Rate: 125 Monitor Mode: External US FHR Baseline Changes: No Baseline Change Variability: Moderate 6-25 bpm Accelerations: 15X15 Decelerations: None Category: Category I Pain Presence: None/Denies Vaginal Exam Membrane Status: Intact Datetime: 10/30/2018 18:20 Stage of : Antepartum Headache: Denies Blurred Vision: No RUQ Epigastric Pain: Denies Facial Edema: None Labor Evaluation Frequency: occ Monitor Mode: External Quality: Mild Pattern: Normal: <= 5 Contractions in 10 Minutes Resting Tone [place]: Relaxed Heart Rate FHR Baseline Rate: 130 Monitor Mode: External US FHR Baseline Changes: No Baseline Change Variability: Moderate 6-25 bpm Accelerations: 15X15 Decelerations: None Category: Category I Pain Presence: None/Denies Vaginal Exam Membrane Status: Intact Datetime: 10/30/2018 18:16 Stage of : Labor Labor Evaluation Frequency: occ Monitor Mode: External Duration (sec)2399: 40 Quality: Mild Pattern: Normal: <= 5 Contractions in 10 Minutes Resting Tone [place]: Relaxed Heart Rate FHR Baseline Rate: 130 Monitor Mode: External US FHR Baseline Changes: No Baseline Change Variability: Moderate 6-25 bpm Accelerations: 15X15 Decelerations: None Category: Category I Pain Presence: None/Denies Vaginal Exam Membrane Status: Intact Datetime: 10/30/2018 17:47 Assessment Type: Admission Assessment Vaginal Bleeding: None Maternal Assessment Level of Consciousness: Fully Conscious DTR's/Clonus: DTRs 2+; No Clonus Headache: Denies Blurred Vision: No Respiratory Effort: Unlabored; Regular Rhythm; Equal Expansion Breath Sounds, Left: Clear and Equal Breath Sounds, Right: Clear and Equal Nausea/Vomiting: Denies RUQ Epigastric Pain: Denies Lower Extremities Edema: None Degree: None Upper Extremities Edema: None Degree: None Facial Edema: None Fall Risk Assessment History of Falling: (0) No Secondary Diagnosis: (0) No Ambulatory Aid: (0) Bedrest/Nurse Assist IV Therapy: (0) No Gait: (0) Normal/Bedrest/Immobile Mental Status: (0) Oriented to Own Ability Fall Score: 0 Fall Risk Score Definition: No Risk: No action required Labor Evaluation Frequency: cramping Heart Rate FHR Baseline Rate: 140 Variability: Moderate 6-25 bpm Accelerations: 15X15 Decelerations: None Category: Category I Pain Assessment Pain Scale: 0 Vaginal Exam Membrane Status: Intact Datetime: 10/30/2018 17:46 Stage of : Antepartum Headache: Denies Blurred Vision: No RUQ Epigastric Pain: Denies Facial Edema: None Labor Evaluation Frequency: 2-3 Monitor Mode: External Duration (sec)2399: 60 Quality: Mild Pattern: Normal: <= 5 Contractions in 10 Minutes Resting Tone [place]: Relaxed Heart Rate FHR Baseline Rate: 125 Monitor Mode: External US FHR Baseline Changes: No Baseline Change Variability: Moderate 6-25 bpm Accelerations: 15X15 Decelerations: None Category: Category I Pain Assessment Pain Scale: 3 Pain Presence: Intermittent Pain Type: Cramping Pain Location: Abdomen Pain Relief Measures: Comfort Measures Vaginal Exam Membrane Status: Intact Datetime: 10/30/2018 16:30 Fall Score: 0 Fall Risk Score Definition: No Risk: No action required Datetime: 10/30/2018 16:20 EGA: 30.0 Datetime: 10/15/2018 19:46 Fall Score: 0 Fall Risk Score Definition: No Risk: No action required Datetime: 10/14/2018 19:26 Fall Score: 0 Fall Risk Score Definition: No Risk: No action required Datetime: 10/14/2018 08:45 Fall Score: 0 Fall Risk Score Definition: No Risk: No action required Datetime: 10/13/2018 20:16 Fall Score: 0 Fall Risk Score Definition: No Risk: No action required Datetime: 10/13/2018 08:07 Fall Score: 0 Fall Risk Score Definition: No Risk: No action required Datetime: 10/12/2018 20:00 Fall Score: 0 Fall Risk Score Definition: No Risk: No action required Datetime: 10/12/2018 08:11 Fall Score: 0 Fall Risk Score Definition: No Risk: No action required Datetime: 10/11/2018 19:16 Fall Score: 0 Fall Risk Score Definition: No Risk: No action required Datetime: 10/11/2018 07:17 Fall Score: 0 Fall Risk Score Definition: No Risk: No action required Datetime: 10/10/2018 19:25 Fall Score: 0 Fall Risk Score Definition: No Risk: No action required Datetime: 10/09/2018 19:37 Fall Score: 0 Fall Risk Score Definition: No Risk: No action required Datetime: 10/09/2018 08:06 Fall Score: 0 Fall Risk Score Definition: No Risk: No action required Datetime: 10/08/2018 20:00 Fall Score: 0 Fall Risk Score Definition: No Risk: No action required Datetime: 10/07/2018 19:35 Fall Score: 0 Fall Risk Score Definition: No Risk: No action required Datetime: 10/06/2018 19:44 Fall Score: 0 Fall Risk Score Definition: No Risk: No action required Datetime: 10/06/2018 09:47 Fall Score: 0 Fall Risk Score Definition: No Risk: No action required Datetime: 10/05/2018 19:55 Fall Score: 0 Fall Risk Score Definition: No Risk: No action required Datetime: 10/05/2018 07:39 Fall Score: 20 Fall Risk Score Definition: No Risk: No action required Datetime: 10/04/2018 20:21 Fall Score: 0 Fall Risk Score Definition: No Risk: No action required Datetime: 10/04/2018 08:05 Fall Score: 0 Fall Risk Score Definition: No Risk: No action required Datetime: 10/03/2018 19:48 Fall Score: 0 Fall Risk Score Definition: No Risk: No action required Datetime: 10/03/2018 07:38 Fall Score: 20 Fall Risk Score Definition: No Risk: No action required Datetime: 10/02/2018 08:09 Fall Score: 20 Fall Risk Score Definition: No Risk: No action required Datetime: 10/01/2018 22:05 Fall Score: 20 Fall Risk Score Definition: No Risk: No action required Datetime: 10/01/2018 17:50 EGA: 25.6 Fall Score: 0 Fall Risk Score Definition: No Risk: No action required Datetime: 09/22/2018 19:42 Fall Score: 0 Fall Risk Score Definition: No Risk: No action required Datetime: 09/22/2018 07:17 Fall Score: 20 Fall Risk Score Definition: No Risk: No action required Datetime: 09/21/2018 19:45 Fall Score: 0 Fall Risk Score Definition: No Risk: No action required Datetime: 09/21/2018 07:30 Fall Score: 0 Fall Risk Score Definition: No Risk: No action required Datetime: 09/20/2018 16:00 Fall Score: 0 Fall Risk Score Definition: No Risk: No action required Datetime: 08/31/2018 07:45 Fall Score: 0 Fall Risk Score Definition: No Risk: No action required Datetime: 08/30/2018 19:55 Fall Score: 0 Fall Risk Score Definition: No Risk: No action required Datetime: 08/30/2018 07:49 Fall Score: 20 Fall Risk Score Definition: No Risk: No action required Datetime: 08/29/2018 19:53 Fall Score: 0 Fall Risk Score Definition: No Risk: No action required Datetime: 08/29/2018 07:29 Fall Score: 0 Fall Risk Score Definition: No Risk: No action required Datetime: 08/28/2018 20:06 Fall Score: 0 Fall Risk Score Definition: No Risk: No action required Datetime: 08/28/2018 16:45 Fall Score: 0 Fall Risk Score Definition: No Risk: No action required Datetime: 08/28/2018 16:44 EGA: 21.0
== END 2018-11-30 10:23 | disposition home or self-care (01) ==
LOC: OBT 04:10 → L-D 04:10 → OBT 10:23
PROVIDERS: ATTEND Obstetrics & Gynecology
DX: O26.873 Cervical shortening, third trimester (principal); O23.43 Unspecified infection of urinary tract in pregnancy, third trimester; Z3A.34 34 weeks gestation of pregnancy
CPT/HCPCS: 36415; 76817; 76818; 81001; 96360; 96361; 96372; J0696; J3105; J7120; Z7500; G0463

== ENCOUNTER 2018-12-05 12:22 | Inpatient (IN) | payer OTHER ==
[~2018-12-05] VITALS: Ht 152.4 cm; Wt 68.0 kg
[~2018-12-05 12:22] MED LIST changes: +NIFE30TA2 PO
[2018-12-05 12:33] VITALS: BP 124/77; Ht 152.4 cm; Wt 68.0 kg
[2018-12-05] MEDS: LACTATED RINGER'S 1,000 ML IV SCH ×2 (16:21→19:00)
[2018-12-05] MEDS ORDERED: NIFEdipine (XL) 30 MG TAB PO ONE (16:30)
--- NOTE | 2018-12-05 23:25 | HP ---
Date/Time of Note Date/Time of Note DATE: 12/05/18 TIME: 23:18 OB - History Hx of Present Free Text/Dictation 28 years old 022 with single intrauterine at 35 weeks and 1 day with MICHELE of 01/04/2019 complaining of uterine contractions. She was seen at the [facility] on October 30, 2018 for labor. She was admitted, received magnesium sulfate steroid. She is currently steroid benefited. She states good movement. She denies nausea, vomiting, shortness of breath, chest pain, headache, visual changes, vaginal bleeding or LOF. Chief Complaint: Uterine contractions Estimated Due Date: Jan 04, 2019 : 5 Para: 2 Spontaneous : 2 Therapeutic : 0 Care: Good Care Ultrasounds: Normal mid trimester US Obstetrical Complications: None Medical Complications: Musculoskeletal Past Family/Social History * Past Medical, Surgical, Family and Obstetric Histories reviewed from c [facility]yer. Blood Type: O+ Rubella: immune RPR/VDRL: Negative GBS Status: Negative HBsAG: Negative OB Admission Exam Vital Signs Vital Signs Vital Signs Date Temp Pulse Resp B/P (MAP) Pulse Ox O2 O2 Flow FiO2 Time Delivery Rate 12/05/18 97.6 124/77 Room Air 12:33 (93) Physical Exam HEENT: WNL Heart: Rhythm Normal Lungs: Clear Abdomen: WNL Extremities: Normal Cervical Dilatation: 3cm Effacement: 75% Station: -2 Membranes: Intact Heart Rate: 140's Accelerations: Accelerations Present Decelerations: No Decelerations Varibility: Moderate Contractions on Admission: < 5 Minutes Apart Intensity: Mild Last 72 hours Lab Results CBC & BMP 12/05/18 16:20 OB Assessment/Plan Other plan: 28-year-old 022 at 35 weeks and 1 day with labor - FHR: No sign of metabolic acidosis- Category I - Continuous EFM, toco - CBC, blood type and screen - Please see the orders - O+/Rubella: Immune - GBS: Negative 2) possible UTI: Urine culture ordered. Ancef 1 g every 6 hours orders. FILEMON LANDEROS Dec 05, 2018 23:25
[2018-12-06] MEDS: LACTATED RINGER'S 1,000 ML IV SCH ×3 (02:56→17:16)
[2018-12-06] MEDS: FERROUS SULFATE (EC) 325 MG TAB PO SCH (08:35)
[2018-12-06] MEDS: PRENATAL VITAMIN PO SCH (08:35)
[2018-12-06] MEDS: NIFEdipine (XL) 30 MG TAB PO SCH (12:46)
--- NOTE | 2018-12-06 15:06 | PN ---
Date/Time of Note Date/Time of Note DATE: 12/06/18 TIME: 15:02 OB Subjective Subjective Subjective Denies any contraction, leaking of fluid, vaginal bleeding. Comfortable. Den ies any complaint OB Objective Objective Objective Appearance: Alert and oriented x4 does not appear to be in any acute distress Abdomen: Soft, gravid, fundal height consider gestational age NST: Category 1 No contraction noted on the monitor Extremities: No calf tenderness, no click no edema Laboratory Tests Test 12/05/18 16:20 White Blood Count 6.9 Red Blood Count 3.94 L Hemoglobin 10.9 L Hematocrit 33.2 L Mean Corpuscular Volume 84.3 Mean Corpuscular Hemoglobin 27.7 L Mean Corpuscular Hemoglobin Concent 32.8 Red Cell Distribution Width 14.8 H Platelet Count 153 # Mean Platelet Volume 10.1 Immature Granulocytes % 0.700 H Neutrophils % 65.0 Lymphocytes % 25.9 Monocytes % 7.4 Eosinophils % 0.9 Basophils % 0.1 Nucleated Red Blood Cells % 0.0 Immature Granulocytes # 0.050 H Neutrophils # 4.5 Lymphocytes # 1.8 Monocytes # 0.5 Eosinophils # 0.1 Basophils # 0.0 Nucleated Red Blood Cells # 0.0 Hepatitis B Surface Antigen NEGATIVE OB Assessment/Plan Other Assessment: HD#2 Admitted for contractions ON procardia Xl. asymptomatic. Doing well S/p steroids No evidence of labor or PPROM Urine culture negative Stop antibiotics Expectant management CRISTELA BRUNSON MD Dec 06, 2018 15:06
[2018-12-06] MEDS: DEXAMETHASONE 4 MG/ML 5 ML INJ IM SCH (17:42)
[2018-12-06] MEDS ORDERED: ACETAMINOPHEN 325 MG TAB PO PRN (18:30)
[2018-12-07] MEDS: LACTATED RINGER'S 1,000 ML IV SCH ×2 (00:32→16:00)
[2018-12-07] MEDS: DEXAMETHASONE 4 MG/ML 5 ML INJ IM SCH ×2 (05:34→16:20)
[2018-12-07] MEDS: PRENATAL VITAMIN PO SCH (10:19)
[2018-12-07] MEDS: NIFEdipine (XL) 30 MG TAB PO SCH (10:19)
[2018-12-07] MEDS: FERROUS SULFATE (EC) 325 MG TAB PO SCH (10:20)
--- NOTE | 2018-12-07 23:58 | PN ---
Date/Time of Note Date/Time of Note DATE: 12/07/18 TIME: 23:55 OB Subjective Subjective Subjective Patient seen and examined. She states good movement. She denies nausea, vomiting, shortness of breath, chest pain, abdominal pain between contractions, headache, visual changes, vaginal bleeding or LOF. OB Objective Objective Objective General: Patient appears well, alert and oriented, NAD, appropriate mood and affect ABD: gravid, soft, non-tender. Back: No CVA tenderness (B/L) LE: Mild edema. No clubbing, cyanosis, edema, thigh or calf tenderness bilaterally FHT: 135 bpm , moderate variability with acceleration, no deceleration-category I Contractions: Occasional OB Assessment/Plan Other plan: 28-year-old 022 at 35 weeks and 3 day with labor (advanced cervical dilation). This is her second admission in current . She was admitted previously and received betamethasone. However as it was more than 8 weeks ago again dexamethasone 6 mg every 12 hours for 4 doses given. Currently she has occasional uterine contractions. Repeat cervical exam tomorrow if no cervical changes since admission she may discharge home with labor precaution. FHR: No sign of metabolic acidosis- Category I - Please see the orders - O+/Rubella: Immune - GBS: Negative FILEMON LANDEROS Dec 07, 2018 23:58
[2018-12-08] MEDS: DEXAMETHASONE 4 MG/ML 5 ML INJ IM SCH (04:21)
--- NOTE | 2018-12-08 08:59 | PN ---
Date/Time of Note Date/Time of Note DATE: 12/08/18 TIME: 08:54 OB Subjective Subjective Subjective Patient seen and examined. She states good movement. She denies nausea, vomiting, shortness of breath, chest pain, abdominal pain between contractions, headache, visual changes, vaginal bleeding or LOF. OB Objective Objective Objective General: Patient appears well, alert and oriented, NAD, appropriate mood and affect ABD: gravid, soft, non-tender. Back: No CVA tenderness (B/L) LE: Mild edema. No clubbing, cyanosis, edema, thigh or calf tenderness bilaterally FHT: 135 bpm , moderate variability with acceleration, no deceleration-category I Contractions: Occasional OB Assessment/Plan Other plan: 28-year-old 022 at 35 weeks and 3 day with labor (advanced cervical dilation). This is her second admission in current . She was admitted previously and received betamethasone. However as it was more than 8 weeks ago again dexamethasone 6 mg every 12 hours for 4 doses given. - FHR: No sign of metabolic acidosis- Category I - Currently has no uterine contractions - No cervical changes in repeat cervical exam this morning - Booster dose of dexamethasone 6 mg every 12 hours for 4 doses given - REpeat LENNOX today - O+/Rubella: Immune - GBS: Negative - Sign and symptom of labor, preeclampsia, kick count discussed in detail with patient. She expressed understanding. All of her questions answered. - She discharged home in stable condition with follow-up in clinic in 1 week and NST with LENNOX weekly FILEMON LANDEROS Dec 08, 2018 08:59
[2018-12-08] MEDS: LACTATED RINGER'S 1,000 ML IV SCH ×2 (10:38)
[2018-12-08] MEDS: FERROUS SULFATE (EC) 325 MG TAB PO SCH (10:57)
[2018-12-08] MEDS: NIFEdipine (XL) 30 MG TAB PO SCH (10:57)
[2018-12-08] MEDS: PRENATAL VITAMIN PO SCH (10:57)
== END 2018-12-08 11:15 | disposition home or self-care (01) | DRG 832 ==
LOC: OBT 12:22 → L-D 12:22 → OBT 13:05 → L-D 13:05
PROVIDERS: ADMIT Obstetrics & Gynecology; ATTEND Obstetrics & Gynecology
DX: O60.03 Preterm labor without delivery, third trimester (principal); O23.43 Unspecified infection of urinary tract in pregnancy, third trimester; Z3A.35 35 weeks gestation of pregnancy
CPT/HCPCS: 76816; 76818; 81001; 84112; 85025; 86592; 86850; 86900; 86901; 87086; 87340; G0463; J1100; J7120

== ENCOUNTER 2018-12-14 10:58 | Outpatient (CLI) | payer OTHER ==
[~2018-12-14] VITALS: Ht 152.4 cm; Wt 70.0 kg
[2018-12-14 11:17] VITALS: BP 134/69; PULSE 131; Ht 152.4 cm; Wt 70.0 kg
--- NOTE | 2018-12-14 12:46 | TRIAGE ---
OB Triage Datetime Report Generated by CPN: 12/14/2018 12:45 Datetime: 12/14/2018 12:04 Vaginal Exam Dilatation (cms): 3.0 Effacement (%): 70 Station: -3 Exam By: s. TERESA Datetime: 12/14/2018 11:13 Stage of : OB Triage Assessment Type: Triage Maternal Assessment Level of Consciousness: Fully Conscious DTR's/Clonus: DTRs 2+; No Clonus Headache: Denies Blurred Vision: No Respiratory Effort: Unlabored; Regular Rhythm; Equal Expansion Breath Sounds, Left: Clear and Equal Breath Sounds, Right: Clear and Equal Nausea/Vomiting: Denies RUQ Epigastric Pain: Denies Facial Edema: None Temperature Route: Axillary Fall Risk Assessment History of Falling: (0) No Secondary Diagnosis: (0) No Ambulatory Aid: (0) Bedrest/Nurse Assist IV Therapy: (0) No Gait: (0) Normal/Bedrest/Immobile Mental Status: (0) Oriented to Own Ability Fall Score: 0 Fall Risk Score Definition: No Risk: No action required Labor Evaluation Frequency: 0 Monitor Mode: External Pattern: Normal: <= 5 Contractions in 10 Minutes Resting Tone Marissa: Relaxed Heart Rate FHR Baseline Rate: 140 Monitor Mode: External US Variability: Moderate 6-25 bpm Accelerations: 10X10 Decelerations: None Category: Category I Pain Assessment Pain Scale: 0 Pain Presence: None/Denies Pain Type: N/A Pain Goal: 3 Pain Relief Measures: Comfort Measures Datetime: 12/14/2018 11:12 Time of Arrival: 12/14/2018 10:54 EGA: 36.3 Arrived By: Ambulatory Arrived From: Home Chief Complaint: F/U NST BPP FROM PREVIOUS VISIT TO R/O PTL, DENIES BLEEDING,OR LEAKING, SOME OCCAS UC'S Movement: Present Contractions: Occasional Rupture of Membranes: Denies Vaginal Bleeding: None Vaginal Discharge: Denies Recent Sexual Intercouse: Denies Abdominal Trauma: Not Applicable Time Provider Notified: 12/14/2018 12:00 Provider Notified: DR. ALFREDO Initial Plan: MONITOR, BPP Datetime: 12/08/2018 10:32 Labor Evaluation Frequency: 0 Monitor Mode: External Resting Tone Marissa: Relaxed Heart Rate FHR Baseline Rate: 135 FHR Baseline Changes: No Baseline Change Variability: Moderate 6-25 bpm Accelerations: 15X15 Decelerations: None Category: Category I Datetime: 12/08/2018 08:45 Vaginal Exam Dilatation (cms): 3.0 Effacement (%): 70 Station: -3 Exam By: dg Vaginal Bleeding: None Cervix, Consistency: Moderate Cervix, Position: Posterior Datetime: 12/08/2018 08:38 Assessment Type: Ongoing Assessment Maternal Assessment Level of Consciousness: Fully Conscious DTR's/Clonus: DTRs 2+; No Clonus Headache: Denies Blurred Vision: No Respiratory Effort: Unlabored; Regular Rhythm; Equal Expansion Breath Sounds, Left: Clear and Equal Breath Sounds, Right: Clear and Equal Nausea/Vomiting: Denies RUQ Epigastric Pain: Denies Facial Edema: None Fall Risk Assessment History of Falling: (0) No Secondary Diagnosis: (0) No Ambulatory Aid: (0) Bedrest/Nurse Assist IV Therapy: (20) Yes Gait: (0) Normal/Bedrest/Immobile Mental Status: (0) Oriented to Own Ability Fall Score: 20 Fall Risk Score Definition: No Risk: No action required Pain Presence: None/Denies Datetime: 12/08/2018 07:20 Stage of : Antepartum Datetime: 12/08/2018 06:58 Assessment Type: Ongoing Assessment Datetime: 12/08/2018 04:21 Stage of : Antepartum Temperature Route: Oral Pain Assessment Pain Scale: 0 Pain Presence: None/Denies Pain Goal: 0 Datetime: 12/07/2018 23:00 Stage of : Antepartum Datetime: 12/07/2018 20:07 Stage of : Antepartum Labor Evaluation Frequency: 0 Monitor Mode: External Pattern: Normal: <= 5 Contractions in 10 Minutes Resting Tone Marissa: Relaxed Heart Rate FHR Baseline Rate: 140 Monitor Mode: External US Variability: Moderate 6-25 bpm Accelerations: 15X15 Decelerations: None Category: Category I Datetime: 12/07/2018 19:30 Stage of : Antepartum Assessment Type: Ongoing Assessment Maternal Assessment Level of Consciousness: Fully Conscious DTR's/Clonus: DTRs 2+; No Clonus Headache: Denies Blurred Vision: No Respiratory Effort: Unlabored; Regular Rhythm; Equal Expansion Breath Sounds, Left: Clear and Equal Breath Sounds, Right: Clear and Equal Nausea/Vomiting: Denies RUQ Epigastric Pain: Denies Facial Edema: None Temperature Route: Oral Fall Risk Assessment History of Falling: (0) No Secondary Diagnosis: (0) No Ambulatory Aid: (0) Bedrest/Nurse Assist IV Therapy: (20) Yes Gait: (0) Normal/Bedrest/Immobile Mental Status: (0) Oriented to Own Ability Fall Score: 20 Fall Risk Score Definition: No Risk: No action required Datetime: 12/07/2018 18:48 Labor Evaluation Frequency: 0 Monitor Mode: External Resting Tone Marissa: Relaxed Datetime: 12/07/2018 16:20 Labor Evaluation Frequency: o Monitor Mode: External Resting Tone Marissa: Relaxed Datetime: 12/07/2018 13:47 Labor Evaluation Frequency: 0 Monitor Mode: External Resting Tone Marissa: Relaxed Heart Rate FHR Baseline Rate: 130 Monitor Mode: External US FHR Baseline Changes: No Baseline Change Variability: Moderate 6-25 bpm Accelerations: 15X15 Decelerations: None Category: Category I Pain Presence: None/Denies Datetime: 12/07/2018 13:10 Labor Evaluation Frequency: occasional Monitor Mode: External Quality: Mild Resting Tone Marissa: Relaxed Heart Rate FHR Baseline Rate: 120 Monitor Mode: External US FHR Baseline Changes: No Baseline Change Variability: Moderate 6-25 bpm Accelerations: 15X15 Decelerations: None Category: Category I Datetime: 12/07/2018 12:17 Labor Evaluation Frequency: 0 Monitor Mode: External Resting Tone Marissa: Relaxed Heart Rate FHR Baseline Rate: 130 Monitor Mode: External US FHR Baseline Changes: No Baseline Change Variability: Moderate 6-25 bpm Accelerations: 15X15 Decelerations: None Category: Category I Datetime: 12/07/2018 12:16 Pain Presence: None/Denies Datetime: 12/07/2018 11:03 Labor Evaluation Frequency: 0 Monitor Mode: External Resting Tone Marissa: Relaxed Heart Rate FHR Baseline Rate: 130 Monitor Mode: External US FHR Baseline Changes: No Baseline Change Variability: Moderate 6-25 bpm Accelerations: 15X15 Decelerations: None Category: Category I Datetime: 12/07/2018 10:22 Labor Evaluation Frequency: occasional Monitor Mode: External Quality: Mild Resting Tone Marissa: Relaxed Heart Rate FHR Baseline Rate: 140 Monitor Mode: External US FHR Baseline Changes: No Baseline Change Variability: Moderate 6-25 bpm Accelerations: 15X15 Decelerations: None Category: Category I Datetime: 12/07/2018 09:52 Vaginal Exam Dilatation (cms): 3.0 Effacement (%): 70 Station: -2 Exam By: dg rn Datetime: 12/07/2018 09:25 Labor Evaluation Frequency: q2-3 Monitor Mode: External Duration (sec)2399: 50 Quality: Mild Resting Tone Marissa: Relaxed Heart Rate FHR Baseline Rate: 140 Monitor Mode: External US FHR Baseline Changes: No Baseline Change Variability: Moderate 6-25 bpm Accelerations: 15X15 Decelerations: None Category: Category I Pain Assessment Pain Scale: 3 Pain Goal: 0 Datetime: 12/07/2018 07:39 Assessment Type: Ongoing Assessment Maternal Assessment Level of Consciousness: Fully Conscious DTR's/Clonus: DTRs 2+; No Clonus Headache: Denies Blurred Vision: No Respiratory Effort: Unlabored; Regular Rhythm; Equal Expansion Breath Sounds, Left: Clear and Equal Breath Sounds, Right: Clear and Equal Nausea/Vomiting: Denies RUQ Epigastric Pain: Denies Facial Edema: None Fall Risk Assessment History of Falling: (0) No Secondary Diagnosis: (0) No Ambulatory Aid: (0) Bedrest/Nurse Assist Gait: (0) Normal/Bedrest/Immobile Mental Status: (0) Oriented to Own Ability Datetime: 12/07/2018 07:38 Labor Evaluation Frequency: 0 Monitor Mode: External Resting Tone Marissa: Relaxed Heart Rate FHR Baseline Rate: 145 Monitor Mode: External US FHR Baseline Changes: No Baseline Change Variability: Moderate 6-25 bpm Accelerations: 15X15 Decelerations: None Category: Category I Pain Presence: None/Denies Datetime: 12/07/2018 07:00 Labor Evaluation Frequency: 0 Monitor Mode: External Resting Tone Marissa: Relaxed Heart Rate FHR Baseline Rate: 120 Monitor Mode: External US FHR Baseline Changes: No Baseline Change Variability: Moderate 6-25 bpm Accelerations: 15X15 Decelerations: None Category: Category I Datetime: 12/07/2018 06:00 Labor Evaluation Frequency: 0 Monitor Mode: External Resting Tone Marissa: Relaxed Heart Rate FHR Baseline Rate: 120 Monitor Mode: External US FHR Baseline Changes: No Baseline Change Variability: Moderate 6-25 bpm Accelerations: 15X15 Decelerations: None Category: Category I Datetime: 12/07/2018 05:38 Stage of : Antepartum Temperature Route: Oral Pain Assessment Pain Scale: 0 Pain Presence: None/Denies Datetime: 12/07/2018 05:00 Labor Evaluation Frequency: 0 Monitor Mode: External Resting Tone Marissa: Relaxed Heart Rate FHR Baseline Rate: 120 Monitor Mode: External US FHR Baseline Changes: No Baseline Change Variability: Moderate 6-25 bpm Accelerations: 15X15 Decelerations: None Category: Category I Datetime: 12/07/2018 04:00 Labor Evaluation Frequency: 0 Monitor Mode: External Resting Tone Marissa: Relaxed Heart Rate FHR Baseline Rate: 118 Monitor Mode: External US FHR Baseline Changes: No Baseline Change Variability: Moderate 6-25 bpm Accelerations: 15X15 Decelerations: None Category: Category I Datetime: 12/07/2018 03:00 Labor Evaluation Frequency: 0 Monitor Mode: External Resting Tone Marissa: Relaxed Heart Rate FHR Baseline Rate: 120 Monitor Mode: External US FHR Baseline Changes: No Baseline Change Variability: Moderate 6-25 bpm Accelerations: 15X15 Decelerations: None Category: Category I Datetime: 12/07/2018 02:00 Labor Evaluation Frequency: 0 Monitor Mode: External Resting Tone Marissa: Relaxed Heart Rate FHR Baseline Rate: 120 Monitor Mode: External US FHR Baseline Changes: No Baseline Change Variability: Moderate 6-25 bpm Accelerations: 15X15 Decelerations: None Category: Category I Datetime: 12/07/2018 01:00 Labor Evaluation Frequency: 0 Monitor Mode: External Resting Tone Marissa: Relaxed Heart Rate FHR Baseline Rate: 135 Monitor Mode: External US FHR Baseline Changes: No Baseline Change Variability: Moderate 6-25 bpm Accelerations: 15X15 Decelerations: None Datetime: 12/07/2018 00:00 Labor Evaluation Frequency: 0 Monitor Mode: External Resting Tone Marissa: Relaxed Heart Rate FHR Baseline Rate: 135 Monitor Mode: External US FHR Baseline Changes: No Baseline Change Variability: Moderate 6-25 bpm Accelerations: 15X15 Decelerations: None Category: Category I Datetime: 12/06/2018 23:00 Labor Evaluation Frequency: 0 Monitor Mode: External Resting Tone Marissa: Relaxed Heart Rate FHR Baseline Rate: 135 Monitor Mode: External US FHR Baseline Changes: No Baseline Change Variability: Moderate 6-25 bpm Accelerations: 15X15 Decelerations: None Category: Category I Datetime: 12/06/2018 22:00 Labor Evaluation Frequency: 0 Monitor Mode: External Resting Tone Marissa: Relaxed Heart Rate FHR Baseline Rate: 135 Monitor Mode: External US FHR Baseline Changes: No Baseline Change Variability: Moderate 6-25 bpm Accelerations: 15X15 Decelerations: None Datetime: 12/06/2018 21:00 Labor Evaluation Frequency: 0 Monitor Mode: External Resting Tone Marissa: Relaxed Heart Rate FHR Baseline Rate: 135 Monitor Mode: External US FHR Baseline Changes: No Baseline Change Variability: Moderate 6-25 bpm Accelerations: 15X15 Decelerations: None Category: Category I Datetime: 12/06/2018 20:00 Labor Evaluation Frequency: 0 Monitor Mode: External Resting Tone Marissa: Relaxed Heart Rate FHR Baseline Rate: 135 Monitor Mode: External US FHR Baseline Changes: No Baseline Change Variability: Moderate 6-25 bpm Accelerations: 15X15 Decelerations: None Category: Category I Datetime: 12/06/2018 19:30 Assessment Type: Ongoing Assessment Maternal Assessment Level of Consciousness: Fully Conscious DTR's/Clonus: DTRs 2+; No Clonus Headache: Denies Blurred Vision: No Respiratory Effort: Unlabored; Regular Rhythm; Equal Expansion Breath Sounds, Left: Clear and Equal Breath Sounds, Right: Clear and Equal Nausea/Vomiting: Denies RUQ Epigastric Pain: Denies Lower Extremities Edema: None Upper Extremities Edema: None Facial Edema: None Fall Risk Assessment History of Falling: (0) No Secondary Diagnosis: (0) No Ambulatory Aid: (0) Bedrest/Nurse Assist IV Therapy: (20) Yes Gait: (0) Normal/Bedrest/Immobile Mental Status: (0) Oriented to Own Ability Fall Score: 20 Fall Risk Score Definition: No Risk: No action required Datetime: 12/06/2018 19:26 Stage of : Antepartum Temperature Route: Oral Pain Assessment Pain Scale: 0 Pain Presence: None/Denies Pain Goal: 3 Datetime: 12/06/2018 18:46 Maternal Assessment Level of Consciousness: Fully Conscious DTR's/Clonus: DTRs 2+ Headache: Generalized Blurred Vision: No Respiratory Effort: Unlabored Nausea/Vomiting: Denies RUQ Epigastric Pain: Denies Facial Edema: None Labor Evaluation Frequency: 10-14 Monitor Mode: External Duration (sec)2399: 20-30 Resting Tone Marissa: Relaxed Heart Rate FHR Baseline Rate: 130 Monitor Mode: External US Variability: Moderate 6-25 bpm Accelerations: 15X15 Decelerations: None Category: Category I Pain Assessment Pain Scale: 4 Pain Presence: Constant Pain Type: Pressure Pain Location: Head Pain Goal: 3 Pain Relief Measures: Pain Medication Given; Comfort Measures Pain Assessment Comments: tylenol on board and starting to be effective Membrane Status: Intact Datetime: 12/06/2018 17:59 Maternal Assessment Level of Consciousness: Fully Conscious DTR's/Clonus: DTRs 2+ Headache: Generalized Blurred Vision: No Respiratory Effort: Unlabored Nausea/Vomiting: Denies RUQ Epigastric Pain: Denies Facial Edema: None Labor Evaluation Frequency: 10-12 Monitor Mode: External Duration (sec)2399: 5-10 Quality: Mild Resting Tone Marissa: Relaxed Pain Assessment Pain Scale: 4 Pain Presence: Constant Pain Type: Pressure Pain Location: Head Pain Goal: 0 Pain Relief Measures: Pain Medication Given; Comfort Measures Membrane Status: Intact Datetime: 12/06/2018 17:00 Maternal Assessment Level of Consciousness: Fully Conscious DTR's/Clonus: DTRs 2+ Headache: Denies Blurred Vision: No Respiratory Effort: Unlabored Nausea/Vomiting: Denies RUQ Epigastric Pain: Denies Facial Edema: None Labor Evaluation Frequency: 10-13 Monitor Mode: External Duration (sec)2399: 10-20 Quality: Mild Resting Tone Marissa: Relaxed Heart Rate FHR Baseline Rate: 130 Monitor Mode: External US Variability: Moderate 6-25 bpm Accelerations: 15X15 Decelerations: None Category: Category I Pain Assessment Pain Scale: 0 Pain Presence: None/Denies Pain Type: N/A Pain Goal: 0 Pain Relief Measures: Comfort Measures Membrane Status: Intact Datetime: 12/06/2018 16:00 Maternal Assessment Level of Consciousness: Fully Conscious DTR's/Clonus: DTRs 2+ Headache: Denies Blurred Vision: No Respiratory Effort: Unlabored Nausea/Vomiting: Denies RUQ Epigastric Pain: Denies Facial Edema: None Labor Evaluation Frequency: 15-20 Monitor Mode: External Duration (sec)2399: 10-20 Quality: Mild Resting Tone Marissa: Relaxed Heart Rate FHR Baseline Rate: 135 Monitor Mode: External US Variability: Moderate 6-25 bpm Accelerations: 15X15 Decelerations: None Category: Category I Pain Assessment Pain Scale: 0 Pain Presence: None/Denies Pain Type: N/A Pain Goal: 0 Pain Relief Measures: Comfort Measures Membrane Status: Intact Datetime: 12/06/2018 15:23 Maternal Assessment Level of Consciousness: Fully Conscious DTR's/Clonus: DTRs 2+ Headache: Denies Blurred Vision: No Respiratory Effort: Unlabored Nausea/Vomiting: Denies RUQ Epigastric Pain: Denies Facial Edema: None Labor Evaluation Frequency: 12-16 Monitor Mode: External Duration (sec)2399: 10-20 Resting Tone Marissa: Relaxed Heart Rate FHR Baseline Rate: 130 Monitor Mode: External US Variability: Moderate 6-25 bpm Accelerations: 15X15 Decelerations: None Category: Category I Pain Assessment Pain Scale: 0 Pain Presence: None/Denies Pain Type: N/A Pain Goal: 3 Pain Relief Measures: Comfort Measures Membrane Status: Intact Datetime: 12/06/2018 15:00 Maternal Assessment Level of Consciousness: Fully Conscious DTR's/Clonus: DTRs 2+ Headache: Denies Blurred Vision: No Respiratory Effort: Unlabored Nausea/Vomiting: Denies RUQ Epigastric Pain: Denies Facial Edema: None Labor Evaluation Frequency: 7-15 Monitor Mode: External Duration (sec)2399: 10-20 Quality: Mild Resting Tone Marissa: Relaxed Monitor Mode: External US Variability: Moderate 6-25 bpm Accelerations: 15X15 Decelerations: None Category: Category I Pain Assessment Pain Scale: 0 Pain Presence: None/Denies Pain Type: N/A Pain Goal: 0 Pain Relief Measures: Comfort Measures Membrane Status: Intact Datetime: 12/06/2018 14:00 Maternal Assessment Level of Consciousness: Fully Conscious DTR's/Clonus: DTRs 2+ Headache: Denies Blurred Vision: No Respiratory Effort: Unlabored Nausea/Vomiting: Denies RUQ Epigastric Pain: Denies Facial Edema: None Labor Evaluation Frequency: 7-15 Monitor Mode: External Duration (sec)2399: 5-20 Quality: Mild Pattern: Normal: <= 5 Contractions in 10 Minutes Resting Tone Marissa: Relaxed Heart Rate FHR Baseline Rate: 125 Monitor Mode: External US Variability: Moderate 6-25 bpm Accelerations: 15X15 Decelerations: None Category: Category I Pain Assessment Pain Scale: 0 Pain Presence: None/Denies Pain Type: N/A Pain Goal: 0 Pain Relief Measures: Comfort Measures Membrane Status: Intact Datetime: 12/06/2018 13:00 Monitor Mode: External Resting Tone Marissa: Relaxed Heart Rate FHR Baseline Rate: 145 Monitor Mode: External US FHR Baseline Changes: No Baseline Change Variability: Moderate 6-25 bpm Accelerations: 15X15 Decelerations: None Category: Category I Datetime: 12/06/2018 12:58 Maternal Assessment Level of Consciousness: Fully Conscious DTR's/Clonus: DTRs 2+ Headache: Denies Blurred Vision: No Respiratory Effort: Unlabored Nausea/Vomiting: Denies RUQ Epigastric Pain: Denies Facial Edema: None Labor Evaluation Frequency: 11-17 Monitor Mode: External Duration (sec)2399: 10-30 Quality: Mild Resting Tone Marissa: Relaxed Heart Rate FHR Baseline Rate: 145 Monitor Mode: External US Variability: Minimal - Undetectable to <=5 bpm Accelerations: 10X10 Decelerations: None Category: Category II Comments: baby sleeping Pain Assessment Pain Scale: 0 Pain Presence: None/Denies Pain Type: N/A Pain Goal: 0 Pain Relief Measures: Comfort Measures Membrane Status: Intact Datetime: 12/06/2018 12:00 Maternal Assessment Level of Consciousness: Fully Conscious DTR's/Clonus: DTRs 2+ Headache: Denies Blurred Vision: No Respiratory Effort: Unlabored Nausea/Vomiting: Denies RUQ Epigastric Pain: Present Facial Edema: None Labor Evaluation Frequency: 15-20 Monitor Mode: External Duration (sec)2399: 10-20 Resting Tone Marissa: Relaxed Heart Rate FHR Baseline Rate: 135 Monitor Mode: External US Variability: Moderate 6-25 bpm Accelerations: 15X15 Decelerations: None Category: Category I Pain Assessment Pain Scale: 0 Pain Presence: None/Denies Pain Type: N/A Pain Goal: 3 Pain Relief Measures: Comfort Measures Pain Assessment Comments: pt states' the pain has gone away since i've been sleeping" Membrane Status: Intact Datetime: 12/06/2018 11:00 Monitor Mode: External Heart Rate FHR Baseline Rate: 140 Monitor Mode: External US FHR Baseline Changes: No Baseline Change Variability: Moderate 6-25 bpm Accelerations: 15X15 Decelerations: None Category: Category I Pain Assessment Pain Scale: 0 Pain Presence: None/Denies Pain Goal: 3 Pain Relief Measures: Comfort Measures Pain Assessment Comments: pain has subsided since pt has laid down on her side and slept Datetime: 12/06/2018 10:00 Monitor Mode: External Contraction Comments: uterine irritability noted. Heart Rate FHR Baseline Rate: 140 Monitor Mode: External US FHR Baseline Changes: No Baseline Change Variability: Moderate 6-25 bpm Accelerations: 15X15 Decelerations: None Category: Category I Datetime: 12/06/2018 08:59 Maternal Assessment Level of Consciousness: Fully Conscious DTR's/Clonus: DTRs 2+ Headache: Denies Blurred Vision: No Respiratory Effort: Unlabored Nausea/Vomiting: Denies RUQ Epigastric Pain: Denies Facial Edema: None Labor Evaluation Frequency: 5-9 Monitor Mode: External Duration (sec)2399: 10-30 Quality: Mild Resting Tone Marissa: Relaxed Contraction Comments: I have come and go pain since i ate breakfast" Heart Rate FHR Baseline Rate: 135 Monitor Mode: External US Variability: Moderate 6-25 bpm Accelerations: 15X15 Decelerations: None Category: Category I Pain Assessment Pain Scale: 4 Pain Presence: Intermittent Pain Type: Cramping Pain Location: Abdomen; Back; Perineum Pain Goal: 4 Pain Relief Measures: Comfort Measures Pain Assessment Comments: pt back to lying down on right side Membrane Status: Intact Datetime: 12/06/2018 07:57 Maternal Assessment Level of Consciousness: Fully Conscious DTR's/Clonus: DTRs 2+ Headache: Denies Blurred Vision: No Respiratory Effort: Unlabored Nausea/Vomiting: Denies RUQ Epigastric Pain: Denies Facial Edema: None Labor Evaluation Frequency: 0 Monitor Mode: External Duration (sec)2399: 0 Resting Tone Marissa: Relaxed Heart Rate FHR Baseline Rate: 130 Monitor Mode: External US Variability: Moderate 6-25 bpm Accelerations: 15X15 Decelerations: None Category: Category I Pain Assessment Pain Scale: 0 Pain Presence: None/Denies Pain Type: N/A Pain Goal: 3 Pain Relief Measures: Comfort Measures Membrane Status: Intact Datetime: 12/06/2018 07:30 Assessment Type: Ongoing Assessment Maternal Assessment Level of Consciousness: Fully Conscious DTR's/Clonus: DTRs 2+; No Clonus Headache: Denies Blurred Vision: No Respiratory Effort: Unlabored; Regular Rhythm; Equal Expansion Breath Sounds, Left: Clear and Equal Breath Sounds, Right: Clear and Equal Nausea/Vomiting: Denies RUQ Epigastric Pain: Denies Lower Extremities Edema: None Upper Extremities Edema: None Facial Edema: None Fall Risk Assessment History of Falling: (0) No Secondary Diagnosis: (0) No Ambulatory Aid: (0) Bedrest/Nurse Assist IV Therapy: (20) Yes Gait: (0) Normal/Bedrest/Immobile Mental Status: (0) Oriented to Own Ability Fall Score: 20 Fall Risk Score Definition: No Risk: No action required Datetime: 12/06/2018 07:26 Stage of : Antepartum Datetime: 12/06/2018 06:50 Stage of : Antepartum Maternal Assessment Level of Consciousness: Fully Conscious Labor Evaluation Frequency: occasional Monitor Mode: External Quality: Mild Pattern: Normal: <= 5 Contractions in 10 Minutes Resting Tone Marissa: Relaxed Heart Rate FHR Baseline Rate: 130 Monitor Mode: External US FHR Baseline Changes: No Baseline Change Variability: Moderate 6-25 bpm Accelerations: 15X15 Decelerations: None Pain Goal: 0 Pain Relief Measures: Comfort Measures Datetime: 12/06/2018 05:50 Stage of : Antepartum Maternal Assessment Level of Consciousness: Fully Conscious Labor Evaluation Frequency: occasional Monitor Mode: External Quality: Mild Pattern: Normal: <= 5 Contractions in 10 Minutes Resting Tone Marissa: Relaxed Heart Rate FHR Baseline Rate: 130 Monitor Mode: External US FHR Baseline Changes: No Baseline Change Variability: Moderate 6-25 bpm Accelerations: 15X15 Decelerations: None Pain Goal: 0 Pain Relief Measures: Comfort Measures Datetime: 12/06/2018 05:03 Stage of : Antepartum Datetime: 12/06/2018 04:51 Stage of : Antepartum Maternal Assessment Level of Consciousness: Fully Conscious Temperature Route: Oral Labor Evaluation Frequency: 0 Monitor Mode: External Pattern: Normal: <= 5 Contractions in 10 Minutes Resting Tone Marissa: Relaxed Heart Rate FHR Baseline Rate: 130 Monitor Mode: External US FHR Baseline Changes: No Baseline Change Variability: Moderate 6-25 bpm Accelerations: 15X15 Decelerations: None Pain Goal: 0 Pain Relief Measures: Comfort Measures Datetime: 12/06/2018 03:50 Stage of : Antepartum Maternal Assessment Level of Consciousness: Fully Conscious Labor Evaluation Frequency: 0 Monitor Mode: External Pattern: Normal: <= 5 Contractions in 10 Minutes Resting Tone Marissa: Relaxed Heart Rate FHR Baseline Rate: 130 Monitor Mode: External US FHR Baseline Changes: No Baseline Change Variability: Moderate 6-25 bpm Accelerations: 15X15 Decelerations: None Pain Goal: 0 Pain Relief Measures: Comfort Measures Datetime: 12/06/2018 02:50 Stage of : Antepartum Maternal Assessment Level of Consciousness: Fully Conscious Labor Evaluation Frequency: 0 Monitor Mode: External Pattern: Normal: <= 5 Contractions in 10 Minutes Resting Tone Marissa: Relaxed Heart Rate FHR Baseline Rate: 135 Monitor Mode: External US FHR Baseline Changes: No Baseline Change Variability: Moderate 6-25 bpm Accelerations: 15X15 Decelerations: None Pain Goal: 0 Pain Relief Measures: Comfort Measures Datetime: 12/06/2018 01:50 Stage of : Antepartum Maternal Assessment Level of Consciousness: Fully Conscious Labor Evaluation Frequency: 0 Monitor Mode: External Pattern: Normal: <= 5 Contractions in 10 Minutes Resting Tone [place]: Relaxed Heart Rate FHR Baseline Rate: 135 Monitor Mode: External US FHR Baseline Changes: No Baseline Change Variability: Moderate 6-25 bpm Accelerations: 15X15 Decelerations: None Pain Presence: Intermittent Pain Type: Cramping; Dull Pain Location: Abdomen Pain Goal: 0 Pain Relief Measures: Comfort Measures Datetime: 12/06/2018 00:50 Stage of : Antepartum Maternal Assessment Level of Consciousness: Fully Conscious Labor Evaluation Frequency: 0 Monitor Mode: External Pattern: Normal: <= 5 Contractions in 10 Minutes Resting Tone [place]: Relaxed Heart Rate FHR Baseline Rate: 135 Monitor Mode: External US FHR Baseline Changes: No Baseline Change Variability: Moderate 6-25 bpm Accelerations: 15X15 Decelerations: None Pain Presence: Intermittent Pain Type: Cramping; Dull Pain Location: Abdomen Pain Goal: 0 Pain Relief Measures: Comfort Measures Datetime: 12/05/2018 23:50 Stage of : Antepartum Maternal Assessment Level of Consciousness: Fully Conscious Labor Evaluation Frequency: 0 Monitor Mode: External Pattern: Normal: <= 5 Contractions in 10 Minutes Resting Tone [place]: Relaxed Heart Rate FHR Baseline Rate: 135 Monitor Mode: External US FHR Baseline Changes: No Baseline Change Variability: Moderate 6-25 bpm Accelerations: 15X15 Decelerations: None Pain Presence: Intermittent Pain Type: Cramping; Dull Pain Location: Abdomen Pain Goal: 0 Pain Relief Measures: Comfort Measures Datetime: 12/05/2018 22:58 Stage of : Antepartum Maternal Assessment Level of Consciousness: Fully Conscious Temperature Route: Oral Labor Evaluation Frequency: occasional Monitor Mode: External Duration (sec)2399: 10-30 Quality: Mild Pattern: Normal: <= 5 Contractions in 10 Minutes Resting Tone [place]: Relaxed Heart Rate FHR Baseline Rate: 135 Monitor Mode: External US FHR Baseline Changes: No Baseline Change Variability: Moderate 6-25 bpm Accelerations: 15X15 Decelerations: None Pain Presence: Intermittent Pain Type: Cramping; Dull Pain Location: Abdomen Pain Goal: 0 Pain Relief Measures: Comfort Measures Pain Assessment Comments: Pt Datetime: 12/05/2018 21:45 Stage of : Antepartum Maternal Assessment Level of Consciousness: Fully Conscious Labor Evaluation Frequency: occasional Monitor Mode: External Duration (sec)2399: 10-30 Quality: Mild Pattern: Normal: <= 5 Contractions in 10 Minutes Resting Tone [place]: Relaxed Heart Rate FHR Baseline Rate: 135 Monitor Mode: External US FHR Baseline Changes: No Baseline Change Variability: Moderate 6-25 bpm Accelerations: 15X15 Decelerations: None Pain Assessment Pain Scale: 2 Pain Presence: Intermittent Pain Type: Cramping; Dull Pain Location: Abdomen Pain Goal: 0 Pain Relief Measures: Comfort Measures Datetime: 12/05/2018 21:08 Stage of : Antepartum Datetime: 12/05/2018 20:43 Stage of : Antepartum Maternal Assessment Level of Consciousness: Fully Conscious DTR's/Clonus: DTRs 2+; No Clonus Headache: Denies Breath Sounds, Left: Clear and Equal Breath Sounds, Right: Clear and Equal Nausea/Vomiting: Denies RUQ Epigastric Pain: Denies Labor Evaluation Frequency: occasional Monitor Mode: External Duration (sec)2399: 10-30 Quality: Mild Pattern: Normal: <= 5 Contractions in 10 Minutes Resting Tone [place]: Relaxed Heart Rate FHR Baseline Rate: 130 Monitor Mode: External US FHR Baseline Changes: No Baseline Change Variability: Moderate 6-25 bpm Accelerations: 15X15 Decelerations: None Pain Assessment Pain Scale: 2 Pain Presence: Intermittent Pain Type: Cramping; Dull Pain Location: Abdomen Pain Goal: 0 Pain Relief Measures: Comfort Measures Datetime: 12/05/2018 19:45 Stage of : Antepartum Assessment Type: Ongoing Assessment Maternal Assessment Level of Consciousness: Fully Conscious DTR's/Clonus: DTRs 2+; No Clonus Headache: Denies Blurred Vision: No Respiratory Effort: Unlabored; Regular Rhythm; Equal Expansion Breath Sounds, Left: Clear and Equal Breath Sounds, Right: Clear and Equal Nausea/Vomiting: Denies RUQ Epigastric Pain: Denies Facial Edema: None Temperature Route: Oral Fall Risk Assessment History of Falling: (0) No Secondary Diagnosis: (0) No Ambulatory Aid: (0) Bedrest/Nurse Assist IV Therapy: (0) No Gait: (0) Normal/Bedrest/Immobile Mental Status: (0) Oriented to Own Ability Fall Score: 0 Fall Risk Score Definition: No Risk: No action required Labor Evaluation Frequency: occasional Monitor Mode: External Duration (sec)2399: 10-20 Quality: Mild Pattern: Normal: <= 5 Contractions in 10 Minutes Resting Tone [place]issa: Relaxed Heart Rate FHR Baseline Rate: 135 Monitor Mode: External US FHR Baseline Changes: No Baseline Change Variability: Moderate 6-25 bpm Accelerations: 15X15 Decelerations: None Category: Category I Pain Assessment Pain Scale: 2 Pain Presence: Intermittent Pain Type: Cramping; Dull Pain Location: Abdomen Pain Goal: 0 Pain Relief Measures: Comfort Measures Pain Assessment Comments: Pt. states that low abd pain is slight discomfort , cramping simular to m onthly cramping. Datetime: 12/05/2018 18:30 Labor Evaluation Frequency: occasional Monitor Mode: External Quality: Mild Resting Tone Marissa: Relaxed Contraction Comments: pt states she feels pressure occasionally Heart Rate FHR Baseline Rate: 130 Monitor Mode: External US FHR Baseline Changes: No Baseline Change Variability: Moderate 6-25 bpm Accelerations: 15X15 Decelerations: None Category: Category I Datetime: 12/05/2018 17:31 Labor Evaluation Frequency: occasional Monitor Mode: External Quality: Mild Resting Tone [place]: Relaxed Heart Rate FHR Baseline Rate: 120 Monitor Mode: External US FHR Baseline Changes: No Baseline Change Variability: Moderate 6-25 bpm Accelerations: 15X15 Decelerations: None Category: Category I Datetime: 12/05/2018 17:05 Pain Assessment Pain Scale: 5 Pain Type: Contraction Pain Goal: 0 Datetime: 12/05/2018 16:38 Labor Evaluation Frequency: q3-5 Monitor Mode: External Duration (sec)2399: 40-50 Quality: Mild Resting Tone [place]: Relaxed Heart Rate FHR Baseline Rate: 130 Monitor Mode: External US FHR Baseline Changes: No Baseline Change Variability: Moderate 6-25 bpm Accelerations: 15X15 Decelerations: None Category: Category I Datetime: 12/05/2018 15:46 Labor Evaluation Frequency: q2-3 Monitor Mode: External Duration (sec)2399: 50 Quality: Mild Resting Tone [place]: Relaxed Heart Rate FHR Baseline Rate: 130 Monitor Mode: External US FHR Baseline Changes: No Baseline Change Variability: Moderate 6-25 bpm Accelerations: 15X15 Decelerations: None Category: Category I Pain Assessment Pain Scale: 6 Pain Type: Contraction Pain Goal: 0 Vaginal Exam Dilatation (cms): 3.0 Effacement (%): 60 Station: -2 Datetime: 12/05/2018 14:42 Assessment Type: Admission Assessment Vaginal Bleeding: None Maternal Assessment Level of Consciousness: Fully Conscious DTR's/Clonus: DTRs 2+; No Clonus Headache: Denies Blurred Vision: No Respiratory Effort: Unlabored; Regular Rhythm; Equal Expansion Breath Sounds, Left: Clear and Equal Breath Sounds, Right: Clear and Equal Nausea/Vomiting: Denies RUQ Epigastric Pain: Denies Facial Edema: None Fall Risk Assessment History of Falling: (0) No Secondary Diagnosis: (0) No Ambulatory Aid: (0) Bedrest/Nurse Assist IV Therapy: (0) No Gait: (0) Normal/Bedrest/Immobile Mental Status: (0) Oriented to Own Ability Fall Score: 0 Fall Risk Score Definition: No Risk: No action required Datetime: 12/05/2018 14:19 Stage of : OB Triage Labor Evaluation Frequency: IRREGULAR Monitor Mode: External Duration (sec)2399: 50 Pattern: Normal: <= 5 Contractions in 10 Minutes Resting Tone Marissa: Relaxed Heart Rate FHR Baseline Rate: 135 Monitor Mode: External US Variability: Moderate 6-25 bpm Accelerations: 15X15 Decelerations: None Category: Category I Pain Assessment Pain Scale: 5 Pain Presence: Intermittent Pain Type: Contraction Pain Location: Abdomen Pain Goal: 0 Pain Relief Measures: Comfort Measures Datetime: 12/05/2018 13:08 Stage of : OB Triage Labor Evaluation Frequency: 1-6 Monitor Mode: External Duration (sec)2399: 30 Pattern: Normal: <= 5 Contractions in 10 Minutes Resting Tone Marissa: Relaxed Heart Rate FHR Baseline Rate: 135 Monitor Mode: External US Variability: Moderate 6-25 bpm Accelerations: 15X15 Decelerations: None Category: Category I Pain Assessment Pain Scale: 5 Pain Presence: Intermittent Pain Type: Contraction Pain Location: Abdomen; Back Pain Relief Measures: Comfort Measures Datetime: 12/05/2018 12:30 Category: Category III Vaginal Exam Dilatation (cms): 3.0 Effacement (%): 80 Station: -2 Exam By: Jose Martin MOORE Datetime: 12/05/2018 12:25 Stage of : OB Triage Assessment Type: Triage Maternal Assessment Level of Consciousness: Fully Conscious DTR's/Clonus: DTRs 2+; No Clonus Headache: Denies Blurred Vision: No Respiratory Effort: Unlabored; Regular Rhythm; Equal Expansion Breath Sounds, Left: Clear and Equal Breath Sounds, Right: Clear and Equal Nausea/Vomiting: Denies RUQ Epigastric Pain: Denies Lower Extremities Edema: None Degree: None Upper Extremities Edema: None Degree: None Facial Edema: None Temperature Route: Oral Fall Risk Assessment History of Falling: (0) No Secondary Diagnosis: (0) No Ambulatory Aid: (0) Bedrest/Nurse Assist IV Therapy: (0) No Gait: (0) Normal/Bedrest/Immobile Mental Status: (0) Oriented to Own Ability Fall Score: 0 Fall Risk Score Definition: No Risk: No action required Monitor Mode: External (Annotations: INITIAL PLACEMENT ) Heart Rate FHR Baseline Rate: 135 Monitor Mode: External US Variability: Moderate 6-25 bpm Accelerations: 15X15 Decelerations: None Category: Category I Pain Presence: Intermittent Pain Type: Cramping Pain Location: Abdomen Pain Goal: 0 Pain Relief Measures: Comfort Measures Datetime: 12/05/2018 12:24 Time of Arrival: 12/05/2018 14:41 EGA: 35.1 Arrived By: Ambulatory Arrived From: Home Chief Complaint: UC'S Movement: Present Contractions: Regular Time Contractions Began: 12/05/2018 10:00 Contractions: 1-2 MIN PER PATIENT Rupture of Membranes: Denies Vaginal Bleeding: None Vaginal Discharge: Denies Recent Sexual Intercouse: Denies Abdominal Trauma: Not Applicable Patient Complaints: Contractions Time Provider Notified: 12/05/2018 12:30 Provider Notified: dr. younger Initial Plan: EFM, CALL MD Datetime: 11/30/2018 04:59 EGA: 34.3 Datetime: 11/30/2018 04:25 Fall Score: 0 Fall Risk Score Definition: No Risk: No action required Datetime: 10/31/2018 07:36 Fall Score: 20 Fall Risk Score Definition: No Risk: No action required Datetime: 10/31/2018 05:14 Fall Score: 0 Fall Risk Score Definition: No Risk: No action required Datetime: 10/30/2018 20:19 Fall Score: 0 Fall Risk Score Definition: No Risk: No action required Datetime: 10/30/2018 17:47 Fall Score: 0 Fall Risk Score Definition: No Risk: No action required Datetime: 10/30/2018 16:30 Fall Score: 0 Fall Risk Score Definition: No Risk: No action required Datetime: 10/30/2018 16:20 EGA: 30.0 Datetime: 10/15/2018 19:46 Fall Score: 0 Fall Risk Score Definition: No Risk: No action required Datetime: 10/14/2018 19:26 Fall Score: 0 Fall Risk Score Definition: No Risk: No action required Datetime: 10/14/2018 08:45 Fall Score: 0 Fall Risk Score Definition: No Risk: No action required Datetime: 10/13/2018 20:16 Fall Score: 0 Fall Risk Score Definition: No Risk: No action required Datetime: 10/13/2018 08:07 Fall Score: 0 Fall Risk Score Definition: No Risk: No action required Datetime: 10/12/2018 20:00 Fall Score: 0 Fall Risk Score Definition: No Risk: No action required Datetime: 10/12/2018 08:11 Fall Score: 0 Fall Risk Score Definition: No Risk: No action required Datetime: 10/11/2018 19:16 Fall Score: 0 Fall Risk Score Definition: No Risk: No action required Datetime: 10/11/2018 07:17 Fall Score: 0 Fall Risk Score Definition: No Risk: No action required Datetime: 10/10/2018 19:25 Fall Score: 0 Fall Risk Score Definition: No Risk: No action required Datetime: 10/09/2018 19:37 Fall Score: 0 Fall Risk Score Definition: No Risk: No action required Datetime: 10/09/2018 08:06 Fall Score: 0 Fall Risk Score Definition: No Risk: No action required Datetime: 10/08/2018 20:00 Fall Score: 0 Fall Risk Score Definition: No Risk: No action required Datetime: 10/07/2018 19:35 Fall Score: 0 Fall Risk Score Definition: No Risk: No action required Datetime: 10/06/2018 19:44 Fall Score: 0 Fall Risk Score Definition: No Risk: No action required Datetime: 10/06/2018 09:47 Fall Score: 0 Fall Risk Score Definition: No Risk: No action required Datetime: 10/05/2018 19:55 Fall Score: 0 Fall Risk Score Definition: No Risk: No action required Datetime: 10/05/2018 07:39 Fall Score: 20 Fall Risk Score Definition: No Risk: No action required Datetime: 10/04/2018 20:21 Fall Score: 0 Fall Risk Score Definition: No Risk: No action required Datetime: 10/04/2018 08:05 Fall Score: 0 Fall Risk Score Definition: No Risk: No action required Datetime: 10/03/2018 19:48 Fall Score: 0 Fall Risk Score Definition: No Risk: No action required Datetime: 10/03/2018 07:38 Fall Score: 20 Fall Risk Score Definition: No Risk: No action required Datetime: 10/02/2018 08:09 Fall Score: 20 Fall Risk Score Definition: No Risk: No action required Datetime: 10/01/2018 22:05 Fall Score: 20 Fall Risk Score Definition: No Risk: No action required Datetime: 10/01/2018 17:50 EGA: 25.6 Fall Score: 0 Fall Risk Score Definition: No Risk: No action required Datetime: 09/22/2018 19:42 Fall Score: 0 Fall Risk Score Definition: No Risk: No action required Datetime: 09/22/2018 07:17 Fall Score: 20 Fall Risk Score Definition: No Risk: No action required Datetime: 09/21/2018 19:45 Fall Score: 0 Fall Risk Score Definition: No Risk: No action required Datetime: 09/21/2018 07:30 Fall Score: 0 Fall Risk Score Definition: No Risk: No action required Datetime: 09/20/2018 16:00 Fall Score: 0 Fall Risk Score Definition: No Risk: No action required Datetime: 08/31/2018 07:45 Fall Score: 0 Fall Risk Score Definition: No Risk: No action required Datetime: 08/30/2018 19:55 Fall Score: 0 Fall Risk Score Definition: No Risk: No action required Datetime: 08/30/2018 07:49 Fall Score: 20 Fall Risk Score Definition: No Risk: No action required Datetime: 08/29/2018 19:53 Fall Score: 0 Fall Risk Score Definition: No Risk: No action required Datetime: 08/29/2018 07:29 Fall Score: 0 Fall Risk Score Definition: No Risk: No action required Datetime: 08/28/2018 20:06 Fall Score: 0 Fall Risk Score Definition: No Risk: No action required Datetime: 08/28/2018 16:45 Fall Score: 0 Fall Risk Score Definition: No Risk: No action required Datetime: 08/28/2018 16:44 EGA: 21.0
--- NOTE | 2018-12-14 19:01 | PN ---
Triage Information Date/Time 12/14/18 Reason for visit: labor Weeks of Gestation 36w3d /Para A2 Diabetes: none Hypertention: none Objective Vital Signs Date Temp Pulse Resp B/P (MAP) Pulse Ox O2 O2 Flow FiO2 Time Delivery Rate 12/14/18 97.5 131 134/69 11:17 (90) Heart Rate: 140's Heart Rate Comments CAT I Contractions: None Exam /- same as before Results/Medications Imaging Results BPP 8 LENNOX 9.3 Disposition: Discharge Assessment/Plan A IUP 36w3d PTL Stable s/p steroid Tx P discharge home f/u at her OB RTH prn with routine labor instructions STERLING ALFREDO MD Dec 14, 2018 19:01
== END 2018-12-14 12:30 | disposition home or self-care (01) ==
LOC: OBT 10:58 → L-D 11:00 → OBT 12:30
PROVIDERS: ATTEND Obstetrics & Gynecology
DX: O60.03 Preterm labor without delivery, third trimester (principal); Z3A.36 36 weeks gestation of pregnancy
CPT/HCPCS: 76818; Z7500; G0463

== ENCOUNTER 2018-12-15 13:03 | Outpatient (CLI) | payer OTHER ==
[~2018-12-15] VITALS: Ht 152.4 cm; Wt 68.2 kg
[2018-12-15 13:20] VITALS: BP 117/74; PULSE 101; RESP 18
--- NOTE | 2018-12-15 14:28 | PN ---
Triage Information Date/Time December 15, 2018 Reason for visit: Follow-up of decreased movement Weeks of Gestation 36 weeks and 4 days /Para 5 para 2 Diabetes: none Hypertention: none Additional information 28-year-old with IUP at 36 weeks and 4 days presented for follow-up of decreased movement. Patient denies any leaking of fluid, vaginal bleeding or contractions. She was seen yesterday for decreased movement Objective Vital Signs Date Temp Pulse Resp B/P (MAP) Pulse Ox O2 O2 Flow FiO2 Time Delivery Rate 12/15/18 97.9 101 18 117/74 13:20 (88) Heart Rate: 130's Heart Rate Comments Reactive and category 1 Contractions: None Exam PROCEDURE: US OB. CLINICAL INDICATION: labor TECHNIQUE: Transabdominal views of the pelvis are available for review. Appearance: Alert and oriented x4 does not appear to be in any acute distress Abdomen: Soft, gravid, fundal height consider gestational age NST: Cat 1 and reactive BPP: 05/09 Results/Medications Imaging Results PROCEDURE: US OB biophysical profile. CLINICAL INDICATION: decreased movements, TECHNIQUE: Multiple sonographic images of the pelvis were obtained. The images were reviewed on a PACS workstation. COMPARISON: 12/14/18 FINDINGS: There is a single live intrauterine gestation. Cardiac activity is present with 148 beats per minute. There is a vertex presentation. The placenta is posterior. There is no evidence of placental abruption. There is a normal amount of amniotic fluid with an LENNOX = 11.2 cm. Biophysical profile: movement 2/2 tone 2/2. breathing 2/2 LENNOX 2/2 Total 05/09 RPTAT: AA . IMPRESSION: Normal biophysical profile. Disposition: Discharge Assessment/Plan IUP at 36 weeks adn 4 days Doing well testing reassuring no evidence of labor or PPROM Reassured Advised to have a follow up in 48 hours after DC from the hospital with her OB office labor precaution and kick counts discussed CRISTELA BRUNSON MD Dec 15, 2018 14:28
--- NOTE | 2018-12-15 14:39 | TRIAGE ---
OB Triage Datetime Report Generated by CPN: 12/15/2018 14:39 Datetime: 12/15/2018 14:10 Level of Consciousness: Fully Conscious DTR's/Clonus: DTRs 2+ Headache: Denies Blurred Vision: No Respiratory Effort: Unlabored Nausea/Vomiting: Denies RUQ Epigastric Pain: Denies Facial Edema: None Frequency: 0 Monitor Mode: External Duration (sec)2399: 0 Resting Tone [place]: Relaxed FHR Baseline Rate: 130 Monitor Mode: External US Variability: Moderate 6-25 bpm Accelerations: 15X15 Decelerations: None Category: Category I Comments: reactive, laborist viewed strip Pain Scale: 0 Pain Presence: None/Denies Pain Type: N/A Pain Relief Measures: Comfort Measures Membrane Status: Intact Datetime: 12/15/2018 13:20 Stage of : OB Triage Datetime: 12/15/2018 13:09 Stage of : OB Triage Assessment Type: Triage Level of Consciousness: Fully Conscious DTR's/Clonus: DTRs 2+; No Clonus Headache: Denies Blurred Vision: No Respiratory Effort: Unlabored; Regular Rhythm; Equal Expansion Breath Sounds, Left: Clear and Equal Breath Sounds, Right: Clear and Equal Nausea/Vomiting: Denies RUQ Epigastric Pain: Denies Facial Edema: None Temperature Route: Axillary History of Falling: (0) No Secondary Diagnosis: (0) No Ambulatory Aid: (0) Bedrest/Nurse Assist IV Therapy: (0) No Gait: (0) Normal/Bedrest/Immobile Mental Status: (0) Oriented to Own Ability Fall Score: 0 Fall Risk Score Definition: No Risk: No action required Frequency: 0 Monitor Mode: External Pattern: Normal: <= 5 Contractions in 10 Minutes Resting Tone [place]: Relaxed FHR Baseline Rate: 135 Monitor Mode: External US Variability: Moderate 6-25 bpm Accelerations: 10X10 Decelerations: None Category: Category I Pain Scale: 0 Pain Presence: None/Denies Pain Type: N/A Pain Goal: 3 Pain Relief Measures: Comfort Measures Datetime: 12/15/2018 13:08 Time of Arrival: 12/15/2018 12:58 EGA: 36.4 Arrived By: Ambulatory Arrived From: Home Chief Complaint: C/O DFM TODAY, DENIES BLEEDING, LEAKING OR UC'S Movement: Decreased Contractions: Denies/Absent Rupture of Membranes: Ruptured Vaginal Bleeding: None Vaginal Discharge: Denies Recent Sexual Intercouse: Denies Abdominal Trauma: Fall Patient Complaints: None Initial Plan: MONITOR, BPP
== END 2018-12-15 14:30 | disposition home or self-care (01) ==
LOC: L-D 13:03 → OBT 13:03
PROVIDERS: ATTEND Obstetrics & Gynecology
DX: O36.8130 Decreased fetal movements, third trimester, not applicable or unspecified (principal); Z3A.36 36 weeks gestation of pregnancy
CPT/HCPCS: 76818; Z7500; G0463

== ENCOUNTER 2018-12-21 13:08 | Outpatient (CLI) | payer OTHER ==
[~2018-12-21] VITALS: Ht 152.4 cm; Wt 69.1 kg
[2018-12-21 13:51] VITALS: Ht 152.4 cm; Wt 69.1 kg
[2018-12-21 13:52] VITALS: BP 112/73; PULSE 105; RESP 18
--- NOTE | 2018-12-21 18:30 | PN ---
Triage Information Date/Time 12/21/18 Reason for visit: DFM Weeks of Gestation 37w3d /Para A2 Hypertention: none Additional information hx of PTL Objective Vital Signs Date Temp Pulse Resp B/P (MAP) Pulse Ox O2 O2 Flow FiO2 Time Delivery Rate 12/21/18 98.1 105 18 112/73 13:52 (86) Heart Rate: 140's Heart Rate Comments CAT I tracing Contractions: None Exam VE 2/50/-2 no change from last week exam at the office Results/Medications Imaging Results BPP 05/09 LENNOX 12.7 Disposition: Discharge Assessment/Plan A IUP 37w3d antepartum test P discharge home [facility] routine labor instructions RTH for wkly antepartum test STERLING ALFREDO MD Dec 21, 2018 18:29
--- NOTE | 2018-12-21 18:44 | TRIAGE ---
OB Triage Datetime Report Generated by CPN: 12/21/2018 18:43 Datetime: 12/21/2018 16:21 Stage of : OB Triage Datetime: 12/21/2018 15:46 Stage of : OB Triage Datetime: 12/21/2018 15:45 Labor Evaluation Frequency: 4-5 Monitor Mode: External Duration (sec)2399: 50-60 Quality: Mild Pattern: Normal: <= 5 Contractions in 10 Minutes Resting Tone [place]: Relaxed Heart Rate FHR Baseline Rate: 130 Monitor Mode: External US Variability: Moderate 6-25 bpm Accelerations: None Decelerations: None Pain Assessment Pain Scale: 3 Pain Presence: Intermittent Pain Type: Cramping Pain Location: Abdomen Pain Goal: 3 Pain Relief Measures: Comfort Measures Datetime: 12/21/2018 15:30 Vaginal Exam Dilatation (cms): 2.0 Effacement (%): 50 Station: -2 Exam By: S ZACHARIAH Vaginal Bleeding: None Cervix, Consistency: Soft Cervix, Position: Midposition Presentation 'A': Cephalic Datetime: 12/21/2018 14:45 Labor Evaluation Frequency: 3-5 Monitor Mode: External Duration (sec)2399: 50-60 Pattern: Normal: <= 5 Contractions in 10 Minutes Resting Tone [place]: Relaxed Heart Rate FHR Baseline Rate: 135 Monitor Mode: External US Variability: Moderate 6-25 bpm Accelerations: 10X10 Decelerations: None Category: Category I Pain Assessment Pain Scale: 3 Pain Presence: Intermittent Pain Type: Cramping Pain Location: Abdomen Pain Goal: 3 Pain Relief Measures: Comfort Measures Datetime: 12/21/2018 13:26 Stage of : OB Triage Assessment Type: Triage Maternal Assessment Level of Consciousness: Fully Conscious DTR's/Clonus: DTRs 2+; No Clonus Headache: Denies Blurred Vision: No Respiratory Effort: Unlabored; Regular Rhythm; Equal Expansion Breath Sounds, Left: Clear and Equal Breath Sounds, Right: Clear and Equal Nausea/Vomiting: Denies RUQ Epigastric Pain: Denies Facial Edema: None Temperature Route: Axillary Fall Risk Assessment History of Falling: (0) No Secondary Diagnosis: (0) No Ambulatory Aid: (0) Bedrest/Nurse Assist IV Therapy: (0) No Gait: (0) Normal/Bedrest/Immobile Mental Status: (0) Oriented to Own Ability Fall Score: 0 Fall Risk Score Definition: No Risk: No action required Labor Evaluation Frequency: 0 Monitor Mode: External Pattern: Normal: <= 5 Contractions in 10 Minutes Resting Tone [place]: Relaxed Heart Rate FHR Baseline Rate: 130 Monitor Mode: External US Variability: Moderate 6-25 bpm Decelerations: None Category: Category I Pain Assessment Pain Scale: 3 Pain Presence: Intermittent Pain Type: Cramping Pain Location: Abdomen Pain Goal: 3 Pain Relief Measures: Comfort Measures Datetime: 12/21/2018 13:24 Time of Arrival: 12/21/2018 13:04 EGA: 37.3 Arrived By: Ambulatory Arrived From: Home Chief Complaint: F/U NST/BPP FOR HX OF PTL/DFM LAST VISIT, DENIES LEAKING, BLEEDING, HAS OCCAS UC'S Movement: Present Contractions: Occasional Rupture of Membranes: Denies Vaginal Bleeding: None Vaginal Discharge: Denies Recent Sexual Intercouse: Denies Abdominal Trauma: Not Applicable Patient Complaints: None Time Provider Notified: 12/21/2018 16:21 Provider Notified: SAYDA Initial Plan: MONITOR, BPP, NST Datetime: 12/15/2018 13:09 Fall Score: 0 Fall Risk Score Definition: No Risk: No action required Datetime: 12/15/2018 13:08 EGA: 36.4 Datetime: 12/14/2018 11:13 Fall Score: 0 Fall Risk Score Definition: No Risk: No action required Datetime: 12/14/2018 11:12 EGA: 36.3 Datetime: 12/08/2018 08:38 Fall Score: 20 Fall Risk Score Definition: No Risk: No action required Datetime: 12/07/2018 19:30 Fall Score: 20 Fall Risk Score Definition: No Risk: No action required Datetime: 12/06/2018 19:30 Fall Score: 20 Fall Risk Score Definition: No Risk: No action required Datetime: 12/06/2018 07:30 Fall Score: 20 Fall Risk Score Definition: No Risk: No action required Datetime: 12/05/2018 19:45 Fall Score: 0 Fall Risk Score Definition: No Risk: No action required Datetime: 12/05/2018 14:42 Fall Score: 0 Fall Risk Score Definition: No Risk: No action required Datetime: 12/05/2018 12:25 Fall Score: 0 Fall Risk Score Definition: No Risk: No action required Datetime: 12/05/2018 12:24 EGA: 35.1 Datetime: 11/30/2018 04:59 EGA: 34.3 Datetime: 11/30/2018 04:25 Fall Score: 0 Fall Risk Score Definition: No Risk: No action required Datetime: 10/31/2018 07:36 Fall Score: 20 Fall Risk Score Definition: No Risk: No action required Datetime: 10/31/2018 05:14 Fall Score: 0 Fall Risk Score Definition: No Risk: No action required Datetime: 10/30/2018 20:19 Fall Score: 0 Fall Risk Score Definition: No Risk: No action required Datetime: 10/30/2018 17:47 Fall Score: 0 Fall Risk Score Definition: No Risk: No action required Datetime: 10/30/2018 16:30 Fall Score: 0 Fall Risk Score Definition: No Risk: No action required Datetime: 10/30/2018 16:20 EGA: 30.0 Datetime: 10/15/2018 19:46 Fall Score: 0 Fall Risk Score Definition: No Risk: No action required Datetime: 10/14/2018 19:26 Fall Score: 0 Fall Risk Score Definition: No Risk: No action required Datetime: 10/14/2018 08:45 Fall Score: 0 Fall Risk Score Definition: No Risk: No action required Datetime: 10/13/2018 20:16 Fall Score: 0 Fall Risk Score Definition: No Risk: No action required Datetime: 10/13/2018 08:07 Fall Score: 0 Fall Risk Score Definition: No Risk: No action required Datetime: 10/12/2018 20:00 Fall Score: 0 Fall Risk Score Definition: No Risk: No action required Datetime: 10/12/2018 08:11 Fall Score: 0 Fall Risk Score Definition: No Risk: No action required Datetime: 10/11/2018 19:16 Fall Score: 0 Fall Risk Score Definition: No Risk: No action required Datetime: 10/11/2018 07:17 Fall Score: 0 Fall Risk Score Definition: No Risk: No action required Datetime: 10/10/2018 19:25 Fall Score: 0 Fall Risk Score Definition: No Risk: No action required Datetime: 10/09/2018 19:37 Fall Score: 0 Fall Risk Score Definition: No Risk: No action required Datetime: 10/09/2018 08:06 Fall Score: 0 Fall Risk Score Definition: No Risk: No action required Datetime: 10/08/2018 20:00 Fall Score: 0 Fall Risk Score Definition: No Risk: No action required Datetime: 10/07/2018 19:35 Fall Score: 0 Fall Risk Score Definition: No Risk: No action required Datetime: 10/06/2018 19:44 Fall Score: 0 Fall Risk Score Definition: No Risk: No action required Datetime: 10/06/2018 09:47 Fall Score: 0 Fall Risk Score Definition: No Risk: No action required Datetime: 10/05/2018 19:55 Fall Score: 0 Fall Risk Score Definition: No Risk: No action required Datetime: 10/05/2018 07:39 Fall Score: 20 Fall Risk Score Definition: No Risk: No action required Datetime: 10/04/2018 20:21 Fall Score: 0 Fall Risk Score Definition: No Risk: No action required Datetime: 10/04/2018 08:05 Fall Score: 0 Fall Risk Score Definition: No Risk: No action required Datetime: 10/03/2018 19:48 Fall Score: 0 Fall Risk Score Definition: No Risk: No action required Datetime: 10/03/2018 07:38 Fall Score: 20 Fall Risk Score Definition: No Risk: No action required Datetime: 10/02/2018 08:09 Fall Score: 20 Fall Risk Score Definition: No Risk: No action required Datetime: 10/01/2018 22:05 Fall Score: 20 Fall Risk Score Definition: No Risk: No action required Datetime: 10/01/2018 17:50 EGA: 25.6 Fall Score: 0 Fall Risk Score Definition: No Risk: No action required Datetime: 09/22/2018 19:42 Fall Score: 0 Fall Risk Score Definition: No Risk: No action required Datetime: 09/22/2018 07:17 Fall Score: 20 Fall Risk Score Definition: No Risk: No action required Datetime: 09/21/2018 19:45 Fall Score: 0 Fall Risk Score Definition: No Risk: No action required Datetime: 09/21/2018 07:30 Fall Score: 0 Fall Risk Score Definition: No Risk: No action required Datetime: 09/20/2018 16:00 Fall Score: 0 Fall Risk Score Definition: No Risk: No action required Datetime: 08/31/2018 07:45 Fall Score: 0 Fall Risk Score Definition: No Risk: No action required Datetime: 08/30/2018 19:55 Fall Score: 0 Fall Risk Score Definition: No Risk: No action required Datetime: 08/30/2018 07:49 Fall Score: 20 Fall Risk Score Definition: No Risk: No action required Datetime: 08/29/2018 19:53 Fall Score: 0 Fall Risk Score Definition: No Risk: No action required Datetime: 08/29/2018 07:29 Fall Score: 0 Fall Risk Score Definition: No Risk: No action required Datetime: 08/28/2018 20:06 Fall Score: 0 Fall Risk Score Definition: No Risk: No action required Datetime: 08/28/2018 16:45 Fall Score: 0 Fall Risk Score Definition: No Risk: No action required Datetime: 08/28/2018 16:44 EGA: 21.0
== END 2018-12-21 16:45 | disposition home or self-care (01) ==
LOC: OBT 13:08 → L-D 13:09 → OBT 16:45
PROVIDERS: ATTEND Obstetrics & Gynecology
DX: O36.8130 Decreased fetal movements, third trimester, not applicable or unspecified (principal); Z3A.37 37 weeks gestation of pregnancy
CPT/HCPCS: 76818; Z7500; G0463

== ENCOUNTER 2018-12-24 16:20 | Outpatient (CLI) | payer OTHER ==
[~2018-12-24] VITALS: Ht 152.4 cm; Wt 69.1 kg
[2018-12-24 16:54] VITALS: Ht 152.4 cm; Wt 69.1 kg
[2018-12-24 16:55] VITALS: BP 112/63; PULSE 83; RESP 18
[2018-12-24] MEDS ORDERED: ACETAMINOPHEN 500 MG TAB PO STA (20:15)
[2018-12-24] MEDS ORDERED: HYDROCODONE/APAP (5/325) TAB PO ONE (21:30)
--- NOTE | 2018-12-24 23:19 | PN ---
Triage Information Date/Time Reason for visit: Headache, dizziness, swelling bilateral lower extremities pain Weeks of Gestation 37 weeks and 6 days /Para 022 Diabetes: none Hypertention: none Objective Vital Signs Date Temp Pulse Resp B/P (MAP) Pulse Ox O2 O2 Flow FiO2 Time Delivery Rate 12/24/18 98.0 83 18 112/63 99 Room Air 16:55 (79) Heart Rate: 140's Contractions: None Results/Medications Result Diagram: 12/24/18 1727 12/24/18 1727 Results 24 hrs Laboratory Tests Test 12/24/18 17:00 12/24/18 17:27 Urine Color YELLOW Urine Clarity SLIGHTLY CLOUDY A Urine pH 6.0 Urine Specific [place] 1.006 Urine Ketones NEGATIVE Urine Nitrite NEGATIVE Urine Bilirubin NEGATIVE Urine Urobilinogen NEGATIVE Urine Leukocyte Esterase 1+ H Urine Microscopic RBC 3 Urine Microscopic WBC 4 Urine Squamous Epithelial Cells MODERATE Urine Bacteria FEW A Urine Hemoglobin NEGATIVE Urine Glucose NEGATIVE Urine Total Protein NEGATIVE White Blood Count 4.9 # Red Blood Count 4.08 L Hemoglobin 11.3 L Hematocrit 34.1 L Mean Corpuscular Volume 83.6 Mean Corpuscular Hemoglobin 27.7 L Mean Corpuscular Hemoglobin Concent 33.1 Red Cell Distribution Width 14.1 Platelet Count 158 Mean Platelet Volume 10.5 H Immature Granulocytes % 0.200 Neutrophils % 56.0 Lymphocytes % 33.5 Monocytes % 8.7 Eosinophils % 1.4 Basophils % 0.2 Nucleated Red Blood Cells % 0.0 Immature Granulocytes # 0.010 Neutrophils # 2.8 Lymphocytes # 1.7 Monocytes # 0.4 Eosinophils # 0.1 Basophils # 0.0 Nucleated Red Blood Cells # 0.0 Prothrombin Time 12.4 Prothrombin Time Ratio 1.0 INR International Normalized Ratio 0.91 Activated Partial Thromboplast Time 27.7 Fibrinogen 583.0 H Sodium Level 138 Potassium Level 3.9 Chloride Level 109 Carbon Dioxide Level 19 L Anion Gap 10 Blood Urea Nitrogen 5 L Creatinine 0.36 L Est Glomerular Filtrat Rate mL/min > 60 Glucose Level 71 Uric Acid 7.4 Calcium Level 9.3 Total Bilirubin 0.2 Direct Bilirubin 0.00 Indirect Bilirubin 0.2 Aspartate Amino Transf (AST/SGOT) 17 Alanine Aminotransferase (ALT/SGPT) 11 L Alkaline Phosphatase 191 H Total Protein 6.7 Albumin 3.5 Globulin 3.20 Albumin/Globulin Ratio 1.09 Disposition: Discharge Assessment/Plan 28 years old 022 with single intrauterine at 37 weeks and 6 days with a MICHELE of 01/08 2019 complaining of headaches, dizziness,/bilateral leg swelling and pain of lower extremities. She states good movement. She denies nausea, vomiting, shortness of breath, chest pain, visual changes, vaginal bleeding or LOF. CBC, CMP performed which were very within normal limits. Uric acid is 7.4. Ultrasound performed LENNOX 11.9, biophysical profile 8 out of 8. Lower extremities Doppler is within normal limits. Tylenol level and then Wright for headache was given. Headache is resolved. Patient has no further dizziness. heart rate is category 1. All her blood pressure in triage were within normal limits, however due to elevated uric acid, 24-hour urine protein ordered. Sign and symptom of discussed in detail with patient. She expressed understanding. All of her questions answered. I strongly recommend she back to preeclampsia triage with any above symptoms. She discharged home in stable condition, will back after collecting urine for 24 hours. FILEMON LANDEROS Dec 24, 2018 23:19
--- NOTE | 2018-12-24 23:34 | TRIAGE ---
OB Triage Datetime Report Generated by CPN: 12/24/2018 23:33 Datetime: 12/24/2018 23:00 Stage of : OB Triage Labor Evaluation Frequency: Occasional Monitor Mode: External Pattern: Normal: <= 5 Contractions in 10 Minutes Resting Tone [place]: Relaxed Heart Rate FHR Baseline Rate: 120 Monitor Mode: External US Variability: Moderate 6-25 bpm Accelerations: 15X15 Decelerations: None Category: Category I Pain Assessment Pain Scale: 0 Pain Presence: None/Denies Pain Type: N/A Pain Relief Measures: Comfort Measures Datetime: 12/24/2018 21:59 Stage of : OB Triage Labor Evaluation Frequency: Irregular Monitor Mode: External Pattern: Normal: <= 5 Contractions in 10 Minutes Resting Tone [place]: Relaxed Heart Rate FHR Baseline Rate: 125 Monitor Mode: External US Variability: Moderate 6-25 bpm Accelerations: 15X15 Decelerations: None Category: Category I Pain Assessment Pain Scale: 0 Pain Presence: Constant Pain Type: Pressure Pain Location: Head Pain Relief Measures: Comfort Measures Datetime: 12/24/2018 21:11 Stage of : OB Triage Datetime: 12/24/2018 21:00 Stage of : OB Triage Labor Evaluation Frequency: Irregular Monitor Mode: External Pattern: Normal: <= 5 Contractions in 10 Minutes Resting Tone [place]: Relaxed Heart Rate FHR Baseline Rate: 120 Monitor Mode: External US Variability: Moderate 6-25 bpm Accelerations: 15X15 Decelerations: None Category: Category I Pain Assessment Pain Scale: 4 Pain Presence: Constant Pain Type: Pressure Pain Location: Head Pain Relief Measures: Comfort Measures Datetime: 12/24/2018 20:30 Stage of : OB Triage Datetime: 12/24/2018 20:00 Stage of : OB Triage Labor Evaluation Frequency: Irregular Monitor Mode: External Duration (sec)2399: 40-60 Quality: Mild Pattern: Normal: <= 5 Contractions in 10 Minutes Resting Tone [place]: Relaxed Heart Rate FHR Baseline Rate: 120 Monitor Mode: External US Variability: Moderate 6-25 bpm Accelerations: 15X15 Decelerations: None Category: Category I Pain Assessment Pain Scale: 6 Pain Presence: Intermittent Pain Type: Contraction Pain Location: Abdomen Pain Relief Measures: Comfort Measures Datetime: 12/24/2018 19:37 Stage of : OB Triage Vaginal Exam Dilatation (cms): 1.0 Effacement (%): 50 Station: -3 Exam By: MEKA, RN Datetime: 12/24/2018 19:35 Stage of : OB Triage Monitor Mode: External Monitor Mode: External US Datetime: 12/24/2018 17:00 Stage of : OB Triage Labor Evaluation Frequency: irr Monitor Mode: External Quality: Mild Pattern: Normal: <= 5 Contractions in 10 Minutes Resting Tone [place]: Relaxed Heart Rate FHR Baseline Rate: 135 Monitor Mode: External US FHR Baseline Changes: No Baseline Change Variability: Moderate 6-25 bpm Accelerations: 15X15 Decelerations: None Category: Category I Pain Presence: Constant Pain Location: Right Leg Membrane Status: Intact Datetime: 12/24/2018 16:47 Time of Arrival: 12/17/2018 16:47 EGA: 36.6 Arrived By: Wheelchair Arrived From: Home Chief Complaint: headache, dizziness, pain and swelling of right leg started today Movement: Present Contractions: Irregular Rupture of Membranes: Denies Vaginal Bleeding: None Vaginal Discharge: Denies Recent Sexual Intercouse: Denies Abdominal Trauma: Not Applicable Additional Patient Complaints: presented to triage with above complaints, pt has been on bed rest f or short cervix, with occ contractions but very mild in nature, denies leaking of water or bleeding Time Provider Notified: 12/24/2018 17:00 Provider Notified: Dr Lopez Initial Plan: VS, EFM, SVE, BPP, LENNOX, UA, Doppler, CBC, CMP Datetime: 12/24/2018 16:45 Stage of : OB Triage Maternal Assessment Level of Consciousness: Fully Conscious DTR's/Clonus: DTRs 2+; No Clonus Headache: Temporal; Frontal Blurred Vision: Yes Respiratory Effort: Unlabored; Regular Rhythm; Equal Expansion Breath Sounds, Left: Clear and Equal Breath Sounds, Right: Clear and Equal Nausea/Vomiting: Denies RUQ Epigastric Pain: Denies Lower Extremities Edema: Bilateral Lower Extremities Degree: 1+ (Annotations: more on right leg and also complaining of pain) Facial Edema: None Temperature Route: Oral Fall Risk Assessment History of Falling: (0) No Secondary Diagnosis: (0) No Ambulatory Aid: (0) Bedrest/Nurse Assist IV Therapy: (0) No Gait: (0) Normal/Bedrest/Immobile Mental Status: (0) Oriented to Own Ability Fall Score: 0 Fall Risk Score Definition: No Risk: No action required Monitor Mode: External Heart Rate FHR Baseline Rate: 128 Monitor Mode: External US Pain Assessment Pain Scale: 5 (Annotations: for headache only) Pain Presence: Constant Pain Type: Sharp Pain Location: head Datetime: 12/21/2018 13:26 Fall Score: 0 Fall Risk Score Definition: No Risk: No action required Datetime: 12/21/2018 13:24 EGA: 37.3 Datetime: 12/15/2018 13:09 Fall Score: 0 Fall Risk Score Definition: No Risk: No action required Datetime: 12/15/2018 13:08 EGA: 36.4 Datetime: 12/14/2018 11:13 Fall Score: 0 Fall Risk Score Definition: No Risk: No action required Datetime: 12/14/2018 11:12 EGA: 36.3 Datetime: 12/08/2018 08:38 Fall Score: 20 Fall Risk Score Definition: No Risk: No action required Datetime: 12/07/2018 19:30 Fall Score: 20 Fall Risk Score Definition: No Risk: No action required Datetime: 12/06/2018 19:30 Fall Score: 20 Fall Risk Score Definition: No Risk: No action required Datetime: 12/06/2018 07:30 Fall Score: 20 Fall Risk Score Definition: No Risk: No action required Datetime: 12/05/2018 19:45 Fall Score: 0 Fall Risk Score Definition: No Risk: No action required Datetime: 12/05/2018 14:42 Fall Score: 0 Fall Risk Score Definition: No Risk: No action required Datetime: 12/05/2018 12:25 Fall Score: 0 Fall Risk Score Definition: No Risk: No action required Datetime: 12/05/2018 12:24 EGA: 35.1 Datetime: 11/30/2018 04:59 EGA: 34.3 Datetime: 11/30/2018 04:25 Fall Score: 0 Fall Risk Score Definition: No Risk: No action required Datetime: 10/31/2018 07:36 Fall Score: 20 Fall Risk Score Definition: No Risk: No action required Datetime: 10/31/2018 05:14 Fall Score: 0 Fall Risk Score Definition: No Risk: No action required Datetime: 10/30/2018 20:19 Fall Score: 0 Fall Risk Score Definition: No Risk: No action required Datetime: 10/30/2018 17:47 Fall Score: 0 Fall Risk Score Definition: No Risk: No action required Datetime: 10/30/2018 16:30 Fall Score: 0 Fall Risk Score Definition: No Risk: No action required Datetime: 10/30/2018 16:20 EGA: 30.0 Datetime: 10/15/2018 19:46 Fall Score: 0 Fall Risk Score Definition: No Risk: No action required Datetime: 10/14/2018 19:26 Fall Score: 0 Fall Risk Score Definition: No Risk: No action required Datetime: 10/14/2018 08:45 Fall Score: 0 Fall Risk Score Definition: No Risk: No action required Datetime: 10/13/2018 20:16 Fall Score: 0 Fall Risk Score Definition: No Risk: No action required Datetime: 10/13/2018 08:07 Fall Score: 0 Fall Risk Score Definition: No Risk: No action required Datetime: 10/12/2018 20:00 Fall Score: 0 Fall Risk Score Definition: No Risk: No action required Datetime: 10/12/2018 08:11 Fall Score: 0 Fall Risk Score Definition: No Risk: No action required Datetime: 10/11/2018 19:16 Fall Score: 0 Fall Risk Score Definition: No Risk: No action required Datetime: 10/11/2018 07:17 Fall Score: 0 Fall Risk Score Definition: No Risk: No action required Datetime: 10/10/2018 19:25 Fall Score: 0 Fall Risk Score Definition: No Risk: No action required Datetime: 10/09/2018 19:37 Fall Score: 0 Fall Risk Score Definition: No Risk: No action required Datetime: 10/09/2018 08:06 Fall Score: 0 Fall Risk Score Definition: No Risk: No action required Datetime: 10/08/2018 20:00 Fall Score: 0 Fall Risk Score Definition: No Risk: No action required Datetime: 10/07/2018 19:35 Fall Score: 0 Fall Risk Score Definition: No Risk: No action required Datetime: 10/06/2018 19:44 Fall Score: 0 Fall Risk Score Definition: No Risk: No action required Datetime: 10/06/2018 09:47 Fall Score: 0 Fall Risk Score Definition: No Risk: No action required Datetime: 10/05/2018 19:55 Fall Score: 0 Fall Risk Score Definition: No Risk: No action required Datetime: 10/05/2018 07:39 Fall Score: 20 Fall Risk Score Definition: No Risk: No action required Datetime: 10/04/2018 20:21 Fall Score: 0 Fall Risk Score Definition: No Risk: No action required Datetime: 10/04/2018 08:05 Fall Score: 0 Fall Risk Score Definition: No Risk: No action required Datetime: 10/03/2018 19:48 Fall Score: 0 Fall Risk Score Definition: No Risk: No action required Datetime: 10/03/2018 07:38 Fall Score: 20 Fall Risk Score Definition: No Risk: No action required Datetime: 10/02/2018 08:09 Fall Score: 20 Fall Risk Score Definition: No Risk: No action required Datetime: 10/01/2018 22:05 Fall Score: 20 Fall Risk Score Definition: No Risk: No action required Datetime: 10/01/2018 17:50 EGA: 25.6 Fall Score: 0 Fall Risk Score Definition: No Risk: No action required Datetime: 09/22/2018 19:42 Fall Score: 0 Fall Risk Score Definition: No Risk: No action required Datetime: 09/22/2018 07:17 Fall Score: 20 Fall Risk Score Definition: No Risk: No action required Datetime: 09/21/2018 19:45 Fall Score: 0 Fall Risk Score Definition: No Risk: No action required Datetime: 09/21/2018 07:30 Fall Score: 0 Fall Risk Score Definition: No Risk: No action required Datetime: 09/20/2018 16:00 Fall Score: 0 Fall Risk Score Definition: No Risk: No action required Datetime: 08/31/2018 07:45 Fall Score: 0 Fall Risk Score Definition: No Risk: No action required Datetime: 08/30/2018 19:55 Fall Score: 0 Fall Risk Score Definition: No Risk: No action required Datetime: 08/30/2018 07:49 Fall Score: 20 Fall Risk Score Definition: No Risk: No action required Datetime: 08/29/2018 19:53 Fall Score: 0 Fall Risk Score Definition: No Risk: No action required Datetime: 08/29/2018 07:29 Fall Score: 0 Fall Risk Score Definition: No Risk: No action required Datetime: 08/28/2018 20:06 Fall Score: 0 Fall Risk Score Definition: No Risk: No action required Datetime: 08/28/2018 16:45 Fall Score: 0 Fall Risk Score Definition: No Risk: No action required Datetime: 08/28/2018 16:44 EGA: 21.0
== END 2018-12-24 23:15 | disposition home or self-care (01) ==
LOC: OBT 16:20 → L-D 16:21 → OBT 23:15
PROVIDERS: ATTEND Obstetrics & Gynecology
DX: O26.893 Other specified pregnancy related conditions, third trimester (principal); Z3A.37 37 weeks gestation of pregnancy; R51 Headache; R42 Dizziness and giddiness; M79.662 Pain in left lower leg; M79.661 Pain in right lower leg
CPT/HCPCS: 76818; 80053; 81001; 84560; 85025; 85384; 85610; 85730; 93970; Z7500; Z7610; G0463

== ENCOUNTER 2018-12-26 08:17 | Outpatient (CLI) | payer OTHER ==
[~2018-12-26] VITALS: Ht 152.4 cm; Wt 69.2 kg
[2018-12-26 08:22] VITALS: BP 120/77; Ht 152.4 cm; Wt 69.2 kg
--- NOTE | 2018-12-26 17:27 | PN ---
Triage Information Date/Time Reason for visit: Patient seen on 12/24/2018 for dizziness and headache. Her blood pressure was within normal limits. For rule out atypical preeclampsia 24- hour urine protein ordered. She is collecting 24-hour urine protein and came here for repeat NST and 1 lab result discussion Weeks of Gestation 38 weeks and 1 day /Para 022 Diabetes: none Hypertention: none Objective Vital Signs Date Temp Pulse Resp B/P (MAP) Pulse Ox O2 O2 Flow FiO2 Time Delivery Rate 12/26/18 98.6 120/77 08:22 (91) Heart Rate: 140's Contractions: None Results/Medications Result Diagram: 12/26/18 0815 Results 24 hrs Laboratory Tests Test 12/26/18 08:15 Urine Random Creatinine 61.99 Urine Collection Duration 24 Urine Total Volume 24 Hours 1500 Urine Creatinine Timed 24 Creatinine Clearance 153.7 Urine Total Volume (Protein) 1500 Urine Total Protein 24 Hour 120.0 Creatinine 0.42 L Disposition: Discharge Assessment/Plan 28 years old 022 with single intrauterine at 38 weeks and 1 day was seen 2 days ago for with a MICHELE of 01/08 2019 was seen in triage 2 days ago for headaches, dizziness,/bilateral leg swelling and pain of lower extremities. PIH labs performed which were within normal limits except uric acid of 7.4. 24-hour urine protein for rule out atypical preeclampsia ordered. She collected urine and came here for NST and performing labs. Currently she states good movement. She denies nausea, vomiting, shortness of breath, chest pain, visual changes, vaginal bleeding or LOF. heart rate is category 1. All her blood pressure in triage were within normal limits.100 24-hour urine protein 120. Sign and symptom of labor, preeclampsia, kick count discussed in detail with patient. She expressed understanding. All of her questions answered. I strongly recommend come back to triage with any concern. She discharged home in stable condition with follow-up in clinic in 2 days for checking blood pressure FILEMON LANDEROS Dec 26, 2018 17:27
== END 2018-12-26 10:10 | disposition home or self-care (01) ==
LOC: L-D 08:17 → OBT 08:17
PROVIDERS: ATTEND Obstetrics & Gynecology
DX: O26.893 Other specified pregnancy related conditions, third trimester (principal); Z3A.38 38 weeks gestation of pregnancy; R42 Dizziness and giddiness; R51 Headache
CPT/HCPCS: 76818; 82565; 82575; 84156; Z7500; G0463

== ENCOUNTER 2019-01-01 17:34 | Inpatient (IN) | payer OTHER ==
[~2019-01-01 17:34] MED LIST changes: -NIFE30TA2 PO
[2019-01-01] MEDS ORDERED: LACTATED RINGER'S 1,000 ML IV PRN (20:41)
[2019-01-01] MEDS ORDERED: OXYTOCIN 30 UNITS/LR 500 ML IV SCH ×3 (21:00)
[2019-01-01] MEDS ORDERED: MISOPROSTOL 200 MCG TAB PR PRN (21:00)
[2019-01-01] MEDS ORDERED: LIDOCAINE 1% (MPF) 30 ML INJ INJ PRN (21:00)
[2019-01-01] MEDS ORDERED: IBUPROFEN 600 MG TAB PO PRN (21:00)
[2019-01-01] MEDS ORDERED: METHYLERGONOVINE 0.2 MG INJ IM PRN (21:00)
[2019-01-01] MEDS ORDERED: BUTORPHANOL 1 MG INJ IV PRN (21:00)
[2019-01-01] MEDS ORDERED: OXYTOCIN 30 UNITS/LR 500 ML IV PRN (21:00)
[2019-01-01] MEDS ORDERED: CARBOPROST 250 MCG INJ IM PRN (21:00)
[2019-01-01] MEDS ORDERED: BUTORPHANOL 2 MG INJ IV PRN (21:00)
[2019-01-01] MEDS: LACTATED RINGER'S 1,000 ML IV SCH ×2 (21:06→23:29)
--- NOTE | 2019-01-01 22:03 | HP ---
Date/Time of Note Date/Time of Note DATE: 01/01/19 TIME: 21:55 OB - History Hx of Present Free Text/Dictation 28 years old -0-2-2 with single intrauterine at 39 weeks with a MICHELE of 01/08/2019 complaining of uterine contractions. She states good movement. She denies nausea, vomiting, shortness of breath, chest pain, headache, visual changes, vaginal bleeding or LOF. Chief Complaint: Uterine contractions Estimated Due Date: Jan 08, 2019 : 5 Para: 2 Spontaneous : 2 Therapeutic : 0 Care: Good Care Ultrasounds: Normal mid trimester US Past Family/Social History * Past Medical, Surgical, Family and Obstetric Histories reviewed from chart. Blood Type: O+ Rubella: immune RPR/VDRL: Negative GBS Status: Negative HBsAG: Negative OB Admission Exam Vital Signs Vital Signs Blood pressure 112/67, pulse rate 70/minutes, respiratory rate 16/minutes, temperature 98.6 Physical Exam HEENT: WNL Heart: Rhythm Normal Lungs: Clear Abdomen: WNL Extremities: Normal Cervical Dilatation: 4cm Effacement: 50% Station: -2 Membranes: Intact Heart Rate: 130's Accelerations: Accelerations Present Decelerations: No Decelerations Varibility: Moderate Contractions on Admission: < 5 Minutes Apart Intensity: Moderate Last 72 hours Lab Results CBC & BMP 01/01/19 20:58 OB Assessment/Plan Other plan: 28-year-old years old 022 with single intrauterine at 39 weeks in labor. - FHR: No sign of metabolic acidosis- Category I - Continuous EFM, toco - CBC, blood type and screen - Analgesia options with R/B/A discussed in detail with patient - Epidural per patient request - Please see the orders - O+/Rubella: Immune - GBS: Negative Admission, procedures, expectations, risks and possible complications have been discussed in detail with the patient. Risk of vaginal delivery including but not limited to bleeding, infection, cervical laceration, placental retention, injury to fetus, blood transfusion, blood transfusion related infection, risk of anesthesia, adhesion, cervical laceration, episiotomy/laceration, possible delivery with risk of bleeding, infection, injury to other organs (bowel, bladder, ureter, vessels, nerves), injury to fetus, blood transfusion, blood transfusion related infection, risk of anesthesia, scar and hernia formation, needs for future , removal of uterus or any other indicated surgery discussed with the patient. She expressed understanding and repeats the risks. All of her questions were answered. She signed the informed consent. PHYSICIAN'S VERIFICATION OF INFORMED CONSENT The patient was counseled regarding the procedure, its indications, risks, potential complications and alternatives and any questions were answered. Consent was obtained. PLANNED PROCEDURE/TREATMENT: Vaginal delivery, episiotomy, repair of laceration possible delivery FILEMON LANDEROS Jan 01, 2019 22:03
[2019-01-01] MEDS ORDERED: MINERAL OIL LIGHT 10 ML VIAL TOP PRN (23:00)
[2019-01-02] VITALS (7 sets, daily range): BP systolic 83–128; BP diastolic 51–78; PULSE 62–82; RESP 17–20
--- NOTE | 2019-01-02 01:38 | LDN ---
Date/Time of Note Date/Time of Note DATE: 01/02/19 TIME: 01:36 Delivery Summary 28 years old -0-2-2 with single intrauterine at 39 weeks and 1 day delivered a viable female over second-degree posterior vaginal wall and perineal laceration. Nose and mouth suction. There was nuchal cord x1 which reduced. Rest of body delivered. Cord clamped and cut after stopping pulsation. Baby given to the nurse. Placenta delivered spontaneously and intact with three-vessel cord. Laceration repaired with 3-0 Vicryl. Patient tolerated procedure well. Time of delivery- 00:40 Weight 7 pounds 15 ounces 9 at 1 minutes and 9 at 5 minutes EBL 250 mL Weeks of Gestation 39 weeks and 1 day Placenta Delivered: Spontaneously Meconium: none Episiotomy: No Estimated blood loss: 250 Sponge & Needle done & correct: Yes All needle counts correct: Yes Any foreign bodies felt in the: No Infant Delivery Information Sex Sex: female Apgars 1 Minute: 9 5 Minute: 9 10 Minute: 10 Suctioning Nose & mouth suctioned at patrick: Yes Umbilical Cord Umbilical cord with: 3 Vessels Cord presentations: nuchal cord Nuchal cord present X: 1 Cord Blood was obtained: Yes Mother & Baby Disposition Disposition Mom & Baby to Maternity; Good: Yes FILEMON LANDEROS Jan 02, 2019 01:38
[2019-01-02] MEDS ORDERED: DEXTROSE 5%-LR 1,000 ML IV SCH (03:15)
[2019-01-02] MEDS ORDERED: LACTATED RINGER'S 1,000 ML IV* SCH (03:15)
[2019-01-02] MEDS ORDERED: DIPHENHYDRAMINE 50 MG INJ IV PRN (03:30)
[2019-01-02] MEDS ORDERED: METHYLERGONOVINE 0.2 MG INJ IM PRN (03:30)
[2019-01-02] MEDS ORDERED: ZOLPIDEM 5 MG TAB PO PRN (03:30)
[2019-01-02] MEDS ORDERED: ACETAMINOPHEN 325 MG TAB PO PRN (03:30)
[2019-01-02] MEDS ORDERED: MISOPROSTOL 200 MCG TAB PR PRN (03:30)
[2019-01-02] MEDS ORDERED: DIBUCAINE 1% 30 GM OINT TOP PRN (03:30)
[2019-01-02] MEDS ORDERED: MAGNESIUM HYDROXIDE 30ML CUP PO PRN (03:30)
[2019-01-02] MEDS ORDERED: OXYTOCIN 30 UNITS/LR 500 ML IV PRN (03:30)
[2019-01-02] MEDS ORDERED: CARBOPROST 250 MCG INJ IM PRN (03:30)
[2019-01-02] MEDS ORDERED: ONDANSETRON 4 MG INJ IV PRN (03:30)
[2019-01-02] MEDS: OXYCODONE/ASPIRIN (4.88/325) TAB PO PRN (03:49)
[2019-01-02] MEDS: LANOLIN HPA 1 PKT TOP PRN ×2 (03:49→14:50)
[2019-01-02] MEDS: BENZOCAINE 20% 56 ML SPRAY TOP PRN (03:50)
[2019-01-02] MEDS: WITCH HAZEL/GLYCERIN PAD PR PRN (03:50)
[2019-01-02] MEDS ORDERED: IBUPROFEN 600 MG TAB PO SCH (06:00)
[2019-01-02] MEDS: SENNA/DOCUSATE NA (8.6MG/50MG) TAB PO PRN (08:13)
[2019-01-02] MEDS: IBUPROFEN 600 MG TAB PO SCH ×4 (08:13→23:28)
--- NOTE | 2019-01-02 13:24 | PN ---
Date/Time of Note Date/Time of Note DATE: 01/02/19 TIME: 13:22 OB Subjective Subjective Subjective PPD# 0. She delivered at 00:43 this morning Patient is doing well. She denies nausea, vomiting, shortness of breath, chest pain, headache. She has been ambulating without difficulty, tolerating regular d iet. Pain is well controlled on current medications OB Objective Objective Objective VS - Last 72 Hours, by Label Date Temp Pulse Resp B/P (MAP) Pulse Ox O2 O2 Flow FiO2 Time Delivery Rate 01/02/19 98.0 80 17 91/55 (67) Room Air 12:45 01/02/19 99.8 68 17 111/56 Room Air 07:50 (74) 01/02/19 98.0 62 18 101/61 Room Air 04:30 (74) 01/02/19 97.8 66 18 128/78 Room Air 03:05 (95) General: AAO X 3, comfortable, NAD, appropriate mood and affect. ABD: +BS. Soft, non-tender. Uterus 2 cm below umbilicus Flank: No CVA tenderness (B/L) LE: Mild edema. No clubbing, cyanosis, thigh or calf tenderness (B/L). Homans 'sign is negative OB Assessment/Plan Other plan: s/p normal vaginal delivery. PPD#0 - AF, VSS - Baby is doing well, at bed side. She is bonding well - Contraception methods with R/B/A/FR discussed - Continue care - She would like to be discharged home tomorrow - Rx and instruction given - Follow up in 2 and 6 weeks at clinic FILEMON LANDEROS Jan 02, 2019 13:23
--- NOTE | 2019-01-02 13:25 | DS ---
Date/Time of Note Date/Time of Note DATE: 01/02/19 TIME: 13:24 Obstetrical Discharge Record Final Diagnosis Final Diagnosis: Term delivered Other Final Diagnosis 28-year-old 5 para 3023 s/p normal vaginal delivery. course is unremarkable. She is ambulating and tolerating regular diet. She is voiding without difficulty. Pain is controlled on current medication. She delivered early this morning and would like to be discharged home tomorrow - AF, VSS - Baby is doing well, at bed side. She is bonding well - Contraception methods with R/B/A/FR discussed - Continue care - Rx and instruction given - Follow up in 2 and 6 weeks at clinic Complications Augmentation: Yes Condition on Discharge Physical Assessment Voiding: Yes Bowel Movement: Yes Breast: Soft, non-tender Fundus: Firm Calf Tenderness: No Patient Condition: Stable FILEMON LANDEROS Jan 02, 2019 13:25
[2019-01-03 03:40] VITALS: BP 103/61; PULSE 80; RESP 18
[2019-01-03] MEDS: IBUPROFEN 600 MG TAB PO SCH ×4 (05:26→23:50)
[2019-01-03 08:10] VITALS: BP 89/50; PULSE 62; RESP 18
[2019-01-03] MEDS: LANOLIN HPA 1 PKT TOP PRN (08:55)
[2019-01-03] MEDS: SENNA/DOCUSATE NA (8.6MG/50MG) TAB PO PRN (08:55)
[2019-01-03] MEDS: OXYCODONE/ASPIRIN (4.88/325) TAB PO PRN ×2 (11:28→21:42)
--- NOTE | 2019-01-03 12:08 | PN ---
Date/Time of Note Date/Time of Note DATE: 01/03/19 TIME: 12:05 OB Subjective Subjective Subjective ambulating, breast feeding. Reports has an cracks in her nipples. Has been u sing consultation. Reports mild cramps. Denies any dizziness or lightheadedness with ambulation. Reports vaginal bleeding decreased. Denies any other complaint. OB Objective Objective Objective Appearance: Alert and oriented x4 does not appear to be in any acute distress Abdomen: Soft, fundus palpable and firm below the umbilicus and nontender Breast: Evidence of nipple fissure noted. No evidence of engorgement or mastitis Extremities: No calf tenderness, no click no edema no cord palpable VS - Last 72 Hours, by Label Date Temp Pulse Resp B/P (MAP) Pulse Ox O2 O2 Flow FiO2 Time Delivery Rate 01/03/19 98.9 62 18 89/50 (63) Room Air 08:10 01/03/19 98.6 80 18 103/61 Room Air 03:40 (75) 01/02/19 98.6 65 18 121/69 Room Air 19:50 (86) 01/02/19 98.6 82 18 108/56 Room Air 16:15 (73) 01/02/19 98.2 74 20 83/51 (62) 16:05 01/02/19 98.0 80 17 91/55 (67) Room Air 12:45 01/02/19 99.8 68 17 111/56 Room Air 07:50 (74) 01/02/19 98.0 62 18 101/61 Room Air 04:30 (74) 01/02/19 97.8 66 18 128/78 Room Air 03:05 (95) Laboratory Tests Test 01/03/19 08:16 White Blood Count 7.8 Red Blood Count 3.56 L Hemoglobin 9.9 L Hematocrit 30.0 L Mean Corpuscular Volume 84.3 Mean Corpuscular Hemoglobin 27.8 L Mean Corpuscular Hemoglobin Concent 33.0 Red Cell Distribution Width 14.1 Platelet Count 179 Mean Platelet Volume 11.2 H Immature Granulocytes % 0.600 H Neutrophils % 63.3 Lymphocytes % 24.9 Monocytes % 8.9 Eosinophils % 2.0 Basophils % 0.3 Nucleated Red Blood Cells % 0.0 Immature Granulocytes # 0.050 H Neutrophils # 5.0 Lymphocytes # 2.0 Monocytes # 0.7 Eosinophils # 0.2 Basophils # 0.0 Nucleated Red Blood Cells # 0.0 OB Assessment/Plan Other Assessment: day #1 Status post Doing well Mild anemia, asymptomatic, ambulating without any problem. Occasional rare episodes of hypotension noted but patient denies any symptom. Desires to go home today. Repeat blood pressure prior to discharge home Follow-up after discharge from the hospital within a week with her primary care physician Discussed to have iron twice a day after discharge from the hospital Patient verbalized understanding. All questions were answered to the patient's best satisfaction CRISTELA BRUNSON MD Jan 03, 2019 12:08
[2019-01-03 12:20] VITALS: BP 103/55; PULSE 66; RESP 19
[2019-01-03] MEDS: WITCH HAZEL/GLYCERIN PAD PR PRN (12:26)
[2019-01-03 15:40] VITALS: BP 117/70; PULSE 86; RESP 20
[2019-01-03 20:00] VITALS: BP 111/64; PULSE 70; RESP 20
[2019-01-04 04:00] VITALS: BP 110/60; PULSE 66; RESP 18
[2019-01-04] MEDS: IBUPROFEN 600 MG TAB PO SCH ×2 (05:55→12:18)
[2019-01-04 08:00] VITALS: BP 113/66; PULSE 73; RESP 18
[2019-01-04] MEDS ORDERED: MEASLES,MUMPS,RUBELLA VACCINE INJ SC* ONE (09:00)
[2019-01-04] MEDS ORDERED: DIPHTH/TET/ACEL PERTUSS (ADULT) 0.5 ML VIAL IM* ONE (09:00)
[2019-01-04] MEDS: SENNA/DOCUSATE NA (8.6MG/50MG) TAB PO PRN (09:21)
[2019-01-04] MEDS: BENZOCAINE 20% 56 ML SPRAY TOP PRN (09:23)
--- NOTE | 2019-01-04 14:51 | PD.PPDC ---
PUMP SERVICER Discharge Instruction Diagnosis [id number] Final Diagnosis: Rpjux5g s/p Condition [id number] Patient Condition: Eltrx9x Stable Diet Zqlep9Ci Diet: Bkhum9x Resume Regular Diet Activity/Restrictions [id number] Activity: Evnvj2i May Shower Ekdbc2Ay Restrictions: Saeqq2b No Lifting No Sexual Activity Nothing in the Vagina No [place] No Tampons, douche Follow-up Follow-up with Physician: 2 Return to clinic for Oggcq2Gp END TOUCHING MACHINE OPERATOR Instructions: Anjtt8z Fever greater than 101 Chills Worsening abdominal pain Excessive Vaginal Bleeding More than 2 pads per hour Unable to tolerate diet [id number] OB Instructions: Blmoe8d Breast Tenderness Depression Blurried Vision Headache STERLING ALFREDO MD Jan 04, 2019 14:51
--- NOTE | 2019-01-04 14:53 | DS ---
Date/Time of Note Date/Time of Note DATE: 01/04/19 TIME: 14:52 Obstetrical Discharge Record Final Diagnosis Final Diagnosis: Term delivered Vaginal Delivery Obstetrical Delivery: Laceration, Repaired Complications Augmentation: Yes Induction: No Rupture of Membranes: No Condition on Discharge Physical Assessment Last Vitals: VSS afegbrile Voiding: Yes Bowel Movement: Yes Breast: Soft, non-tender Fundus: Firm Abdomen and Incision: n/a Episiotomy: n/a Calf Tenderness: No Patient Condition: Stable STERLING ALFREDO MD Jan 04, 2019 14:53
[2019-01-04 15:44] VITALS: BP 115/87; PULSE 71; RESP 17
[2019-01-04] MEDS: WITCH HAZEL/GLYCERIN PAD PR PRN (15:58)
--- NOTE | 2019-01-05 17:49 | DELSUM ---
Delivery Summary A-C Datetime Report Generated by CPN: 01/05/2019 17:49 DELIVERY PERSONNEL Ceramic Tile Mechanic: Dries, Bry MATERNAL INFORMATION Delivery Anesthesia: Local Medications in Delivery: LR WITH 30 UNITS PITOCIN Delivery QBL (ml): 250 Placenta Cultured: No Maternal Complications: Other Other Maternal Complications: overian cyst, bladder lap. ANEMIA. RN Comments: hx ptl w all three pregnancies, hx of short cervical length, dextomethozone 12/06/18- LABOR SUMMARY EDC: 01/08/2019 00:00 No. Babies in Womb: 1 Attempted: No Labor Anesthesia: None LABOR INFORMATION Reason for Induction: Not Applicable Onset of Labor: 01/01/2019 15:00 Complete Dilatation: 01/02/2019 00:39 Oxytocin: Augmentation Group B Beta Strep: Negative Antibiotics # of Doses: 0 Steroids Given: Full Course; >24Hs before Delivery Reason Steroids Not Administered: Not Applicable MEMBRANES Membranes Rupture Method: Artificial Rupture of Membranes: 01/02/2019 00:39 Length of Rupture (hr): 0.02 Amniotic Fluid Color: Clear Amniotic Fluid Amount: Moderate Amniotic Fluid Odor: None STAGES OF LABOR Stage 1 hr: 9 Stage 1 min: 39 Stage 2 hr: 0 Stage 2 min: 1 Stage 3 hr: 0 Stage 3 min: 4 Total Time in Labor hr: 9 Total Time in Labor min: 44 VAGINAL DELIVERY Laceration Extension: Second Degree Laceration Type: Perineal; Vaginal Laceration Repair: Yes Initial Vag Sponge Count: 10 Final Vag Sponge Count: 10 Initial Vag Sharps Count: 1 Final Vag Sharps Count: 2 Sponge Count Correct: Yes; Vaginal Sweep Performed Sharps Count Correct: Yes BABY A INFORMATION Delivery Date/Time: 01/02/2019 00:40 Method of Delivery: Vaginal Born in Route : No : N/A Forceps: N/A Vacuum Extraction: N/A Shoulder Dystocia : N/A SHOULDER DYSTOCIA BABY A Delivery Date/Time: 01/02/2019 00:40 PRESENTATION/POSITION BABY A Presentation: Cephalic Cephalic Presentation: Vertex Vertex Position: Left Occipital Anterior Breech Presentation: N/A PLACENTA INFORMATION BABY A Placenta Delivery Time : 01/02/2019 00:44 Placenta Method of Delivery: Spontaneous Placenta Status: Delivered SCORES BABY A Heart Rate 1 min: >100 bpm Resp Effort 1 min: Good Cry Reflex Irritability 1 min: Cough/Sneeze/Pulls Away Muscle Tone 1 min: Active Motion Color 1 min: Body [place], Extremit Blue Resuscitation Effort 1 min: Tactile Stimulation SCORE 1 MIN: 9 Heart Rate 5 min: >100 bpm Resp Effort 5 min: Good Cry Reflex Irritability 5 min: Cough/Sneeze/Pulls Away Muscle Tone 5 min: Active Motion Color 5 min: Body [place], Extremit Blue Resuscitation Effort 5 min: Tactile Stimulation SCORE 5 MIN: 9 INFANT INFORMATION BABY A Gestational Age at Delivery: 39.1 Gestational Status: Full Term- 39- 40.6 Weeks Outcome : Liveborn Condition : Stable Sex: Female IDENTIFICATION/MEDS BABY A ID Band Number: [id number] ID Band Location: Right Leg; Left Arm Sensor Applied: Yes Sensor Number: [id number] Sensor Location : Cord Clamp Vitamin K Given : Not Given Erythromycin Given: Not Given WEIGHT/LENGTH BABY A Birthweight (gm): 3590 Weight (lb): 7 Infant Weight (oz): 15 Infant Length (in): 19.50 Length (cm): 49.53 CORD INFORMATION BABY A No. Cord Vessels: 3 Nuchal Cord : Around Neck x1, Loose Cord Blood Taken: Yes Suction: Mouth; Nose ASSESSMENT BABY A Infant Complications: Multiple Late Decels; Other Complications- Other: ptl, got steroids, antibiotics, magnesium and procardia Physical Findings at Delivery: Within Normal Limits Respirations: Appears Normal Hairmasters Manager/ALS Called : No Care By: Annia HALEY RN Transferred To: Remains with Mother
== END 2019-01-04 17:47 | disposition home or self-care (01) | DRG 807 ==
LOC: OBT 17:34 → L-D 17:35 → OBT 17:35 → L-D 17:43 → PP1 01-02 03:07 → EDSTATUS 01-09 17:41
PROVIDERS: ADMIT Obstetrics & Gynecology; ATTEND Obstetrics & Gynecology
PROC: 10E0XZZ Delivery of Products of Conception, External Approach (ICD-10-PCS; principal; 2019-01-02)
PROC: 0KQM0ZZ Repair Perineum Muscle, Open Approach (ICD-10-PCS; 2019-01-02)
DX: O70.1 Second degree perineal laceration during delivery (principal); Z37.0 Single live birth; O69.81X0 Labor and delivery complicated by cord around neck, without compression, not applicable or unspecified; O90.81 Anemia of the puerperium; D64.9 Anemia, unspecified; Z3A.39 39 weeks gestation of pregnancy
CPT/HCPCS: 85025; 85610; 85730; 86592; 86850; 86900; 86901; 87340; J2210; J2590; J7120; J7121

== ENCOUNTER 2019-01-10 11:36 | Emergency (ER) | payer OTHER ==
[~2019-01-10] VITALS: Ht 167.6 cm; Wt 63.5 kg
[2019-01-10 11:40] VITALS: BP 153/97; PULSE 96; RESP 20; Ht 167.6 cm; Wt 63.5 kg
[2019-01-10] MEDS ORDERED: IBUPROFEN 600 MG TAB PO ONE (13:30)
--- NOTE | 2019-01-10 14:02 | ERD ---
ER Documentation Chief Complaint Chief Complaint Complains of a fever x 2 days HPI 28-year-old female presents with complaint of fever times 1 day with associated chills and cough. Only using Motrin for relief of fever with some improvement. Also complaining of bilateral lower extremity swelling increasing in severity over the past week. Patient is currently 1 week . Admits to pain in the bilateral lower extremities no erythema or warmth. Denies history of CHF, DM or other medical conditions. ROS All systems reviewed and are negative except as per history of present illness. Medications Home Meds Active Scripts Oseltamivir Phosphate* (Tamiflu*) 75 Mg Capsule, 75 MG PO BID for 5 Days, CAP Prov:ANITRA SHERMAN PA-C 01/10/19 Reported Medications Ascorbic Acid (Vitamin C) 250 Mg Tab, 250 MG PO DAILY, TAB 09/20/18 Ergocalciferol (Vitamin D) 400 Unit Capsule, 400 UNIT PO DAILY, CAP 09/20/18 Vit #76/Iron,Carb/FA (Pnv 29-1 Tablet) 1 Each Tablet, 1 EACH PO DAILY, TAB 09/20/18 Allergies Allergies: Coded Allergies: No Known Drug Allergies (Verified Allergy, Unknown, 11/30/18) PMhx/Soc History of Surgery: Yes (TONSILLECTOMY) Anesthesia Reaction: No Hx Neurological Disorder: No Hx Respiratory Disorders: No Hx Cardiac Disorders: No Hx Psychiatric Problems: Yes (ANXIETY) Hx Miscellaneous Medical Probl: No Hx Alcohol Use: Yes (OCCASIONAL) Hx Substance Use: No Hx Tobacco Use: No FmHx Family History: diabetes, coronary disease Physical Exam Vitals Vital Signs Date Temp Pulse Resp B/P (MAP) Pulse Ox O2 O2 Flow FiO2 Time Delivery Rate 01/10/19 100.0 13:29 01/10/19 100.0 96 20 153/97 98 11:40 (115) Physical Exam Const: No acute distress Head: Atraumatic Eyes: Normal Conjunctiva ENT: Normal External Ears, Nose and Mouth. Neck: Full range of motion. No meningismus. Resp: Clear to auscultation bilaterally Cardio: Regular rate and rhythm, no murmurs Abd: Soft, non tender, non distended. Normal bowel sounds Skin: No petechiae or rashes Back: No midline or flank tenderness Ext: No cyanosis, or edema Neur: Awake and alert Psych: Normal Mood and Affect Result Diagram: 4/11/19 1327 01/10/19 1327 Results 24 hrs Laboratory Tests Test 01/10/19 13:27 White Blood Count 5.8 10^3/ul Red Blood Count 4.15 10^6/ul Hemoglobin 11.3 g/dl Hematocrit 35.0 % Mean Corpuscular Volume 84.3 fl Mean Corpuscular Hemoglobin 27.2 pg Mean Corpuscular Hemoglobin Concent 32.3 g/dl Red Cell Distribution Width 13.5 % Platelet Count 273 10^3/UL Mean Platelet Volume 9.8 fl Immature Granulocytes % 0.500 % Neutrophils % 59.0 % Lymphocytes % 30.4 % Monocytes % 7.3 % Eosinophils % 2.6 % Basophils % 0.2 % Nucleated Red Blood Cells % 0.0 /100WBC Immature Granulocytes # 0.030 10^3/ul Neutrophils # 3.4 10^3/ul Lymphocytes # 1.8 10^3/ul Monocytes # 0.4 10^3/ul Eosinophils # 0.2 10^3/ul Basophils # 0.0 10^3/ul Nucleated Red Blood Cells # 0.0 10^3/ul Prothrombin Time 12.9 Sec Prothrombin Time Ratio 1.0 INR International Normalized Ratio 0.96 Activated Partial Thromboplast Time 30.3 Sec Thrombin Time 15.5 SEC Sodium Level 141 mmol/L Potassium Level 3.9 mmol/L Chloride Level 111 mmol/L Carbon Dioxide Level 23 mmol/L Anion Gap 7 Blood Urea Nitrogen 12 mg/dl Creatinine 0.49 mg/dl Est Glomerular Filtrat Rate mL/min > 60 mL/min Glucose Level 73 mg/dl Calcium Level 9.7 mg/dl Total Bilirubin 0.3 mg/dl Direct Bilirubin 0.00 mg/dl Indirect Bilirubin 0.3 mg/dl Aspartate Amino Transf (AST/SGOT) 33 IU/L Alanine Aminotransferase (ALT/SGPT) 49 IU/L Alkaline Phosphatase 131 IU/L Total Protein 7.4 g/dl Albumin 3.9 g/dl Globulin 3.50 g/dl Albumin/Globulin Ratio 1.11 Current Medications Medications Dose Sig/[place] Start Time Status Last (Trade) Ordered Route PRN Stop Time Admin Dose Reason Admin Ibuprofen 600 mg ONCE ONCE 01/10/19 DC 01/10/19 (Motrin) PO 13:30 13:29 01/10/19 13:31 Procedures/MDM This is an otherwise healthy 28-year-old female who presented to the ED with complaint of fever and bilateral lower extremity swelling. Symptoms and presentation classic for influenza. Doppler ultrasounds negative for DVT, blood work unremarkable with no abnormal findings. Patient stable for discharge home at this time with prescription for Tamiflu. Advised use of compression stockings to help with edema. Patient advised if symptoms persist or worsen to present back to the ED and to follow-up with PCP and/or OB within the next 1-2 d ays. Is in no acute distress afebrile and vital signs within normal limits she is stable for discharge home at this time. She expressed verbal understanding and agreement to treatment plan all questions addressed and answered. Departure Diagnosis: Primary Impression: Influenza Additional Impression: Peripheral edema Condition: Stable ANITRA SHERMAN PA-C Jan 10, 2019 14:02
[2019-01-10] MEDS ORDERED: OSEL75CA23 PO (14:43)
== END 2019-01-10 15:05 | disposition home or self-care (01) ==
LOC: FTE 11:36
DX: J11.1 Influenza due to unidentified influenza virus with other respiratory manifestations (principal); R60.0 Localized edema
CPT/HCPCS: 80053; 85025; 85049; 85610; 85670; 85730; 93970; Z7502; Z7610